=== PATIENT | female | born 1945 | race Caucasian/White ===

== ENCOUNTER 2019-10-09 07:44 | Outpatient (NON) | payer MEDICARE, SELFPAY ==
[2019-10-09 19:19] LABS: SARS-CoV-2 RNA PCR Negative
== END 2019-10-09 07:45 ==
PROVIDERS: Visit Provider Physician Assistant
DX: Z20.828 Contact with and (suspected) exposure to other viral communicable diseases (principal)
CPT/HCPCS: 87635; C9803; U0003

== ENCOUNTER 2019-10-15 11:26 | Outpatient (CLI) | payer MEDICARE, SELFPAY ==
--- NOTE | ~2019-10-15 | XR_ITS ---
EXAMINATION: XR chest 2V DATE: 10/15/2019 11:52 INDICATION: COPD, unspecified, cough TECHNIQUE: Frontal and lateral views of the chest are obtained COMPARISON: 12/14/2018 FINDINGS: The lungs are free of acute opacities. Calcified pulmonary nodules are consistent with old granulomatous disease. There is no pleural effusion or pneumothorax. The cardiomediastinal silhouette is normal. There is moderate thoracic spondylosis. A surgical clip is noted in the right breast. IMPRESSION: 1. No acute cardiopulmonary abnormality. Reviewed, dictated and finalized at location A.
== END 2019-10-15 11:27 | disposition home or self-care (01) ==
PROVIDERS: PCP Nurse Practitioner Family; Visit Provider Nurse Practitioner Family
DX: J44.9 Chronic obstructive pulmonary disease, unspecified (principal); Z87.891 Personal history of nicotine dependence
CPT/HCPCS: 71046

== ENCOUNTER 2019-11-04 03:18 | Outpatient (CLI) | payer MEDICARE, SELFPAY ==
[2019-11-04 20:03] LABS: SARS-CoV-2 RNA PCR Negative
== END 2019-11-04 03:19 | disposition home or self-care (01) ==
LOC: ANHCOVIDDT 03:19
PROVIDERS: PCP Nurse Practitioner Family; Visit Provider Internal Medicine Gastroenterology
DX: Z01.812 Encounter for preprocedural laboratory examination (principal); Z20.828 Contact with and (suspected) exposure to other viral communicable diseases
CPT/HCPCS: 87635; C9803; U0003

== ENCOUNTER 2019-11-06 01:37 | Day surgery (SDC) | payer MEDICARE, SELFPAY ==
[2019-10-27 15:09] VITALS: BMI 36.8
--- NOTE | 2019-11-06 09:44 | WPDGICN ---
Assessment and Plan Assessment and plan (1) History of colon polyps: Code(s): Z86.010 - Personal history of colonic polyps Status: Acute Assessment and Plan: patient has a history of adenomatous colon polyps removed from the colon 4 years ago. She presents today for follow-up examination. Follow-up colonoscopy every 3-5 years advised in the future. (2) Family history of colon cancer in mother: Code(s): Z80.0 - Family history of malignant neoplasm of digestive organs Status: Acute GI Consult Note Consult date/time: 11/06/19 09:44 HPI: Robina Beltran is a 74 year old female seen in evaluation at the request of Dr Sree Franco. Patient presents for surveillance colonoscopy. Her current weight appetite bowel movements are normal. She denies abdominal pain she has had no blood in her stools. She does have a history of a colon polyp with tubulovillous adenomatous features removed from the colon in 2016. Her family history is significant her mother had colon cancer. Patient states her current bowel habits are normal regular without blood. Review of Systems Review of Systems: All systems reviewed & are unremarkable except as noted in HPI and below PMFSH Past Medical History Medical History (Updated 11/06/19 @ 09:46 by Beto Hurtado MD) Body mass index (bmi) 33.0-33.9, adult (06/27/17) COPD (chronic obstructive pulmonary disease) CTS (carpal tunnel syndrome) Hyperlipidemia Hypertension Restless leg syndrome Surgical History Surgical History (Updated 12/14/18 @ 15:24 by Sonya Palacio NP) History of lumpectomy of right breast History of total bilateral knee replacement Social History Social History (Updated 02/10/19 @ 08:42 by Cierra Hercules CMA) Years smoked: 50 Smoking status: Current every day smoker Tobacco type: cigarettes Second hand tobacco smoke exposure: Yes Alcohol intake: never Substance use: never Substance use type: does not use Living arrangements: with family Gender identity (if verbalized by the patient): Female Meds Home Medications and Allergies Home Medications Medication Instructions Recorded Confirmed Type amlodipine 10 mg PO DAILY 12/14/18 10/27/19 History aspirin [Adult Low Dose Aspirin] 81 mg PO DAILY 12/14/18 10/27/19 History atorvastatin 10 mg PO DAILY 12/14/18 10/27/19 History indapamide 2.5 mg PO DAILY 12/14/18 10/27/19 History albuterol sulfate 90 mcg/actuation 2 puff INHALATION Q4-6H PRN #8.5 gm 02/10/19 10/27/19 Rx aerosol inhaler fluticasone fur. 100 mcg-umeclid 1 inhalation INHALATION DAILY 09/10/19 10/27/19 History 62.5 mcg-vilant 25 mcg inhalat.powder sertraline 25 mg tablet 25 mg PO DAILY 09/10/19 10/27/19 History trazodone 50 mg tablet 50 mg PO TID 09/10/19 10/27/19 History Allergies Allergy/AdvReac Type Severity Reaction Status Date / Time levofloxacin Allergy Unknown Rash Verified 11/06/19 09:45 Penicillins Allergy Unknown Rash Verified 11/06/19 09:45 Exam Narrative: Exam Narrative: Physical exam reveals patient to be alert. Vital signs stable. HEENT exam unremarkable. Lungs are clear to auscultation and percussion. Heart is without murmur or extra sounds. Abdominal exam bowel sounds are present soft nontender with no organomegaly. Digital external rectal exam is normal.
[2019-11-06 09:47] VITALS: BP 143/68; PULSE 80; RESP 16; TEMP 36.7; O2SAT 95; BMI 35.7
[2019-11-06] MEDS: LACTATED RINGERS 1,000 ML 150 ML IV CONT (10:02)
--- NOTE | 2019-11-06 10:21 | WPDANESEPPF ---
Anes - Initial Pre Proc Eval Procedure: Operation Date: 11/06/19 10:00 Proposed Procedures p Screening Colonoscopy - Beto Hurtado MD Date/Time: 11/06/19 10:21 Surgeon: Beto Hurtado MD Pre Op Diagnosis: Hx Colon Polyps Patient Data Age: 74 Gender: F Height: 4 ft 10 in Weight: 77.6 kg Last Vital Signs Temp 98.1 F 11/06/19 09:47 Pulse 80 11/06/19 09:47 Resp 16 11/06/19 09:47 BP 143/68 H 11/06/19 09:47 Pulse Ox 95 11/06/19 09:47 Allergies Allergy/AdvReac Type Severity Reaction Status Date / Time levofloxacin Allergy Unknown Rash Verified 11/06/19 09:45 Penicillins Allergy Unknown Rash Verified 11/06/19 09:45 Home Medications Medication Instructions Recorded Confirmed Type amlodipine 10 mg PO DAILY 12/14/18 10/27/19 History aspirin [Adult Low Dose Aspirin] 81 mg PO DAILY 12/14/18 10/27/19 History atorvastatin 10 mg PO DAILY 12/14/18 10/27/19 History indapamide 2.5 mg PO DAILY 12/14/18 10/27/19 History albuterol sulfate 90 mcg/actuation 2 puff INHALATION Q4-6H PRN #8.5 gm 02/10/19 10/27/19 Rx aerosol inhaler fluticasone fur. 100 mcg-umeclid 1 inhalation INHALATION DAILY 09/10/19 10/27/19 History 62.5 mcg-vilant 25 mcg inhalat.powder sertraline 25 mg tablet 25 mg PO DAILY 09/10/19 10/27/19 History trazodone 50 mg tablet 50 mg PO TID 09/10/19 10/27/19 History Patient hx anesthesia problems: none Family hx anesthesia problems: none PMFSH Past Medical History Medical History (Updated 11/06/19 @ 09:46 by Beto Hurtado MD) Body mass index (bmi) 33.0-33.9, adult (06/27/17) COPD (chronic obstructive pulmonary disease) CTS (carpal tunnel syndrome) Hyperlipidemia Hypertension Restless leg syndrome Surgical History Surgical History (Updated 12/14/18 @ 15:24 by Sonya Palacio NP) History of lumpectomy of right breast History of total bilateral knee replacement Social History Social History (Updated 02/10/19 @ 08:42 by Cierra Hercules CMA) Years smoked: 50 Smoking status: Current every day smoker Tobacco type: cigarettes Second hand tobacco smoke exposure: Yes Alcohol intake: never Substance use: never Substance use type: does not use Living arrangements: with family Gender identity (if verbalized by the patient): Female Anes - Eval Final PreProcedure Day of Procedure 11/06/19 10:21 Patient weight: obese Heart: regular rate and rhythm Lungs: clear to auscultation Airway: Mallampati scale class II Neurological: alert and oriented Last oral intake: >/= 8 hours ASA classification: III Emergent: no Anesthetic plan: proceed Anesthesia type and monitoring: general GIVS and standard monitoring Informed Consent: The patient's anesthetic plan and its attendant risks and benefits were discussed with the patient/family/POA. Questions were solicited and answers provided to the satisfaction of the patient/family/POA.
[2019-11-06 10:43] VITALS: BP 85/31; PULSE 72; RESP 16; O2SAT 91
[2019-11-06 10:53] VITALS: BP 91/33; PULSE 72; RESP 16; O2SAT 92
[2019-11-06 11:03] VITALS: BP 97/31; PULSE 65; RESP 16; O2SAT 93
== END 2019-11-06 11:33 | disposition home or self-care (01) ==
PROVIDERS: PCP Family Medicine; Visit Provider Internal Medicine Gastroenterology
PROC: 0DJD8ZZ Inspection of Lower Intestinal Tract, Via Natural or Artificial Opening Endoscopic (ICD-10-PCS; CPT 45378; principal; 2019-11-06 10:00)
DX: Z12.11 Encounter for screening for malignant neoplasm of colon (principal); D12.2 Benign neoplasm of ascending colon; K64.8 Other hemorrhoids; Z80.0 Family history of malignant neoplasm of digestive organs; I10 Essential (primary) hypertension; E78.5 Hyperlipidemia, unspecified; G25.81 Restless legs syndrome; J44.9 Chronic obstructive pulmonary disease, unspecified; Z79.82 Long term (current) use of aspirin; F17.210 Nicotine dependence, cigarettes, uncomplicated; E66.9 Obesity, unspecified; Z68.35 Body mass index [BMI] 35.0-35.9, adult
CPT/HCPCS: 45385; 88305; J2704; J7120

== ENCOUNTER 2020-04-08 10:30 | Outpatient (CLI) | payer MEDICARE, SELFPAY ==
--- NOTE | ~2020-04-08 | CT_ITS ---
EXAMINATION: CT lung screening EXAM DATE: 04/08/2020 10:56 INDICATION: Z87.891 - Personal history of nicotine dependence. Cough, shortness of breath. COPD and e mphysema. TECHNIQUE: Spiral low dose CT of the chest without contrast. Axial, coronal and sagittal images were reviewed. The dose-length product (DLP) for this examination was 151.35 mGy-cm. The exposure was t ailored according to patient size (auto mA exposure control), and iterative reconstruction (ASIR) was used as additional dose reduction technique. Comparison is made to prior examination from 04/13/2017. FINDINGS: Chronic biapical opacities again noted, consistent with scarring. There is 5 mm noncalcifi ed granuloma in the left upper lobe on image 47, stable. There are scattered calcified lung granuloma s. Mild to moderate emphysema and hyperinflation. Tracheobronchial tree is patent. There is no med iastinal, hilar or axillary lymphadenopathy. There are no pleural or pericardial effusions. There is no pneumothorax. Heart normal in size. There is mild to moderate coronary arterial calcificat ion, arterial sclerosis. Upper abdomen is unremarkable. There is mild to moderate thoracic spondylo sis without osteoblastic or osteolytic lesions identified. IMPRESSION: Lung-RADS category 2, benign appearance or behavior (<1% chance of malignancy); recommend continued LDCT screening in 1 year. Reviewed, dictated and finalized at location B. NISTRATIVE SERVICES COORDINATOR
== END 2020-04-08 10:31 | disposition home or self-care (01) ==
PROVIDERS: PCP Family Medicine; Visit Provider Internal Medicine Critical Care Medicine
DX: Z12.2 Encounter for screening for malignant neoplasm of respiratory organs (principal); Z87.891 Personal history of nicotine dependence
CPT/HCPCS: 71271

== ENCOUNTER → 2021-04-06 09:19 | Outpatient (CLI) | payer MEDICARE, SELFPAY ==
--- NOTE | ~2021-04-06 | CT_ITS ---
EXAMINATION: CT lung screening DATE: 04/06/2021 09:32 INDICATION: Personal history of tobacco TECHNIQUE: Computed tomography (CT) of the chest was performed without intravenous contrast. The dose -length product was 134.92 mGy-cm. Automated exposure control and iterative reconstruction technique were employed. COMPARISON: CT dated 04/08/2020 FINDINGS: Heart size normal. Mild mediastinal lymphadenopathy, likely reactive. No significant pleura l or pericardial effusion. There are calcified granulomas in the lung parenchyma. There is atheroscle rosis of the aorta and coronary arteries. The upper abdomen is unremarkable. There is emphysema. Stab le 4 mm left upper lobe nodule, image 50. No endobronchial lesions. No new pulmonary nodules or wilbert s. Mild thoracic spondylosis. No acute osseous abnormality. IMPRESSION: 1. Lung-RADS category 2: Benign appearance or behavior. Continue annual screening with noncontrast lo w-dose chest CT in 12 months. Reviewed, dictated and finalized at location B. ORATION ENGINEER IMPRESSION: 1. Lung-RADS category 2: Benign appearance or behavior. Continue annual screeni ng with noncontrast low-dose chest CT in 12 months.
== END ==
PROVIDERS: PCP Family Medicine; Visit Provider Nurse Practitioner Family
DX: Z12.2 Encounter for screening for malignant neoplasm of respiratory organs (principal); Z87.891 Personal history of nicotine dependence
CPT/HCPCS: 71271

== ENCOUNTER → 2021-04-15 03:35 | Outpatient (CLI) | payer MEDICARE, SELFPAY ==
[2021-04-15 11:19] LABS: SARS-CoV-2 RNA PCR Negative
== END ==
PROVIDERS: PCP Family Medicine; Visit Provider Family Medicine
DX: R05.9 Cough, unspecified (principal); Z20.822 Contact with and (suspected) exposure to COVID-19
CPT/HCPCS: C9803; U0003; U0005

== ENCOUNTER 2021-06-13 15:39 | Emergency (ER) | payer MEDICARE, SELFPAY ==
--- NOTE | ~2021-06-13 | XR_ITS ---
EXAMINATION: XR chest 2V DATE: 06/13/2021 16:36 INDICATION: Cough and shortness of breath. TECHNIQUE: Frontal and lateral views of the chest were obtained. COMPARISON: Chest 2 views 10/15/2019, chest CT 04/06/2021 FINDINGS: There is mild scarring at the lung apices. The lungs are hyperexpanded, consistent with emp hysema. Calcified pulmonary nodules are consistent with old granulomatous disease. There are airspace opacities in the lower lung zones, right worse than left. There are small pleural effusions. No pneu mothorax. The heart size is normal. There is a surgical clip in right breast. IMPRESSION: 1. Airspace opacities in the lower lung zones, right worse than left, consistent with atelectasis [place] pneumonia. 2. Small pleural effusions. 3. Emphysema. Reviewed, dictated and finalized at location B. IMPRESSION: 1. Airspace opacities in the lower lung zones, right worse than left, consisten t with atelectasis versus pneumonia. 2. Small pleural effusions. 3. Emphysema.
[2021-06-13 15:45] VITALS: BP 130/63; PULSE 91; RESP 18; TEMP 36.6; O2SAT 94
[2021-06-13 16:45] VITALS: PULSE 91; RESP 20; O2SAT 94
[2021-06-13] MEDS: ALBUTEROL SULFATE NEB 2.5 MG/3 ML INH INHALATION (16:47)
[2021-06-13] MEDS: predniSONE 20 MG TABLET 40 MG PO (16:47)
--- NOTE | 2021-06-13 17:08 | ED.URI ---
HPI - URI/Sore Throat General Chief Complaint: Upper Respiratory Infection Stated Complaint: Shortness of Breath,Body Aches,Chills Time Seen by Provider: 06/13/21 16:00 Source: patient Mode of arrival: ambulatory Limitations: no limitations History of Present Illness HPI Narrative: 76-year-old female with history of asthma and COPD presents to the [facility] with complaint of cough, chest congestion, body aches, chills and fatigue for 4 to 5 days. Reports that she has had a low-grade fever. Patient has a history of low O2 sats in the evening. Uses 2 L O2 only when sleeping. Patient reports short of breath with exertion. States I feel like crap . No respiratory distress at this time. Sitting comfortably on exam table. All systems reviewed and negative except as noted above. Related Data Home Medications Medication Instructions Recorded Confirmed amlodipine 10 mg PO DAILY 12/14/18 06/13/21 aspirin [Adult Low Dose Aspirin] 81 mg PO DAILY 12/14/18 06/13/21 atorvastatin 10 mg PO DAILY 12/14/18 06/13/21 indapamide 2.5 mg PO DAILY 12/14/18 06/13/21 ipratropium 0.5 mg-albuterol 3 mg 3 ml INHALATION Q6H PRN 03/18/20 06/13/21 (2.5 mg base)/3 mL nebulization soln paroxetine HCl 10 mg tablet 10 mg PO DAILY 03/18/20 06/13/21 trazodone 50 mg tablet 50 mg PO .night tablet 03/18/20 06/13/21 cyclobenzaprine 10 mg PO BID 06/13/21 06/13/21 zolpidem 5 mg PO HS 06/13/21 06/13/21 Allergies Allergy/AdvReac Type Severity Reaction Status Date / Time levofloxacin Allergy Unknown Rash Verified 06/13/21 15:51 Penicillins Allergy Unknown Rash Verified 06/13/21 15:51 Review of Systems Review of Systems: CONSTITUTIONAL: Reports fever, chills EYES: Denies visual changes, redness, or discharge. ENT: Denies rhinorrhea, congestion, sore throat, or otalgia. CARDIOVASCULAR: Denies chest pain, palpitations, or edema. RESPIRATORY: Reports cough and dyspnea with exertion. GASTROINTESTINAL: Denies abdominal pain, nausea, vomiting, or diarrhea. GENITOURINARY: Denies dysuria or hematuria. SKIN: Denies rash or itching. MUSCULOSKELETAL: Denies back pain, joint pain, or myalgia. NEUROLOGIC: Denies headache, numbness, or weakness. PSYCHIATRIC: Denies anxiety or depression. All other systems reviewed are negative, except as documented in HPI. [facility] Past Medical History Medical History Body mass index (bmi) 33.0-33.9, adult (06/27/17) COPD (chronic obstructive pulmonary disease) CTS (carpal tunnel syndrome) Hyperlipidemia Hypertension Restless leg syndrome Surgical History Surgical History History of lumpectomy of right breast History of total bilateral knee replacement Social History Social History Years smoked: 50 Tobacco type: cigarettes Second hand tobacco smoke exposure: Yes Alcohol intake: never Substance use: never Substance use type: does not use Gender identity (if verbalized by the patient): Female Comments At time of signature, agree with nursing past medical, surgical, social and family history. There is no relevant family history pertinent to the presenting complaint. Exam Narrative: GENERAL: This is a well-nourished, well-developed patient, in no apparent distress. HEAD: normocephalic, atraumatic. EYES: PERRL. Sclera clear/white. Vision is grossly intact. EARS: External ears normal, auditory canals clear and without drainage, TMs normal without perforation. Hearing grossly intact. NOSE: External nose normal with no obvious nasal discharge, nares without redness, no rhinorrhea. THROAT: Mucous membranes moist, posterior pharynx clear. NECK: Neck supple, non-tender without lymphadenopathy, masses or thyromegaly. CARDIOVASCULAR: Regular rate and rhythm without murmurs, gallops, or rubs. RESPIRATORY: Coarse, tight lung sounds throughout all lung winkler. [place]
[2021-06-13 17:15] VITALS: PULSE 93; RESP 24; O2SAT 89
== END 2021-06-13 17:28 | disposition short-term general hospital (02) ==
PROVIDERS: Emergency Provider Nurse Practitioner Family; PCP Family Medicine
DX: J18.9 Pneumonia, unspecified organism (principal); J45.901 Unspecified asthma with (acute) exacerbation; J44.9 Chronic obstructive pulmonary disease, unspecified; E78.5 Hyperlipidemia, unspecified; I10 Essential (primary) hypertension; F17.210 Nicotine dependence, cigarettes, uncomplicated; Z79.82 Long term (current) use of aspirin
CPT/HCPCS: 71046; 87426; 87804; 94640; 99213; C9803; G0463; J7512

== ENCOUNTER 2021-06-13 18:04 | Observation (INO) | payer MEDICARE, SELFPAY ==
[2021-06-13] VITALS (19 sets, daily range): BP systolic 105–134; BP diastolic 45–71; PULSE 76–97; RESP 18–26; TEMP 35.6–36.8; O2SAT 92–95
--- NOTE | 2021-06-13 18:11 | ECG_ITS ---
Measurements Intervals [place] Rate: 93 P: 64 MN: 150 QRS: 57 QRSD: 88 T: 60 QT: 334 QTc: 417 Interpretive Statements SINUS RHYTHM INCOMPLETE RIGHT BUNDLE BRANCH BLOCK BASELINE ARTIFACT- I, II, III, AVL, AVF, V6 BORDERLINE ECG Electronically Signed On 06-13-2021 20:22:34 CDT by Jose Faustin D.O.
[2021-06-13 18:34] LABS: Basophils Absolute Auto 0.1 K/mm3 (0.0-0.1); Basophils Percent Auto 0.5 % (0.2-1.2); Eosinophils Percent Auto 0.2 % (0-4.4); Hematocrit 40.3 % (37.0-47.0); Hemoglobin 13.4 g/dL (12.0-15.0); Immature Granulocyte Absolute 0.15 K/mm3 (0.00-0.031); Immature Granulocyte Percent A 1.3 % (0-0.5); Lymphocytes Absolute Auto 0.61 K/mm3 (0.9-3.2); Lymphocytes Percent Auto 5.4 % (18.3-44.2); Mean Corpuscular HGB Conc 33.3 g/dl (32-36); Mean Corpuscular Hemoglobin 29.9 pg (26-34); Mean Platelet Volume 9.5 fl (7.4-10.4); Monocytes Absolute Auto 0.7 K/mm3 (0.1-0.6); Monocytes Percent Auto 5.8 % (2.6-8.5); Neutrophils Absolute Auto 9.9 K/mm3 (1.3-6.7); Neutrophils Percent Auto 86.8 % (45.5-73.1); Platelet Count Result 246 k/mm3 (150-375); Red Blood Count 4.48 M/mm3 (4.2-5.4); Red Cell Distribution Width 12.9 % (11.5-14.5); White Blood Count 11.4 K/mm3 (4.5-10.0)
[2021-06-13 18:44] LABS: Alanine Aminotransferase 17 U/L (4-35); Albumin Level 3.9 g/dL (3.5-5.1); Alkaline Phosphatase 94 U/L (38-126); Anion Gap 7 mmol/L (8-16); Aspartate Amino Transferase 23 U/L (14-36); Bilirubin,Total 0.6 mg/dL (0.2-1.3); Blood Urea Nitrogen 17 mg/dL (7-17); Calcium 8.6 mg/dL (8.4-10.2); Carbon Dioxide 30 mmol/L (22-30); Chloride 96 mmol/L (98-107); Estimated Glomerular Filt Rate > 60; Glucose 148 mg/dL (65-110); Sodium 133 mmol/L (137-145)
[2021-06-13] MEDS: ALBUTEROL SULFATE NEB 2.5 MG/0.5 ML INH 5 MG INHALATION (19:22)
[2021-06-13] MEDS: IPRATROPIUM BR 0.02% INH SOLN 0.5 MG/2.5 ML VIAL INHALATION (19:22)
[2021-06-13] MEDS: methylPREDNISolone SOD SUCC 125 MG VIAL IV PUSH (19:24)
--- NOTE | 2021-06-13 20:04 | ED.SOB ---
HPI - SOB/Dyspnea General Chief Complaint: Shortness of Breath/Dyspnea Stated Complaint: Pneumonia, Low Oxygen from Urgent Care Time Seen by Provider: 06/13/21 18:50 History of Present Illness HPI Narrative: Patient is a 76-year-old female who presents ER with cough and shortness of breath. Patient has history of COPD. She has been having increased shortness of breath for the last 5 days. Reports cough that is productive. Unsure if her mucus is changed in consistency/color. No fevers or chills or sweats. Was seen at urgent care and told she was hypoxic and had pneumonia. Chest x-ray shows atelectasis versus pneumonia. Patient wears oxygen at night but has not been on it during the day. She is currently on 2 L satting 93%. She has had some mild improvement with nebulizer treatments. Related Data Home Medications Medication Instructions Recorded Confirmed amlodipine 10 mg PO DAILY 12/14/18 06/13/21 aspirin [Adult Low Dose Aspirin] 81 mg PO DAILY 12/14/18 06/13/21 atorvastatin 10 mg PO DAILY 12/14/18 06/13/21 indapamide 2.5 mg PO DAILY 12/14/18 06/13/21 ipratropium 0.5 mg-albuterol 3 mg 3 ml INHALATION Q6H PRN 03/18/20 06/13/21 (2.5 mg base)/3 mL nebulization soln paroxetine HCl 10 mg tablet 10 mg PO DAILY 03/18/20 06/13/21 trazodone 50 mg tablet 50 mg PO .night tablet 03/18/20 06/13/21 cyclobenzaprine 10 mg PO BID 06/13/21 06/13/21 zolpidem 5 mg PO HS 06/13/21 06/13/21 Allergies Allergy/AdvReac Type Severity Reaction Status Date / Time levofloxacin Allergy Unknown Rash Verified 06/13/21 15:51 Penicillins Allergy Unknown Rash Verified 06/13/21 15:51 Review of Systems Review of Systems: All systems reviewed & are unremarkable except as noted in HPI and below Constitutional: Constitutional: Denies chills, Reports fatigue, Denies fever(s) and Reports weakness ENT: Denies nasal congestion and Denies sore throat Cardiovascular: Cardiovascular: Denies chest pain, Denies rapid heart rate and Denies radiating jaw, neck or arm pain Respiratory: Respiratory: Reports chest congestion, Reports cough, Reports dyspnea and Denies wheezing Gastrointestinal: Gastrointestinal: Denies abdominal pain, Denies nausea and Denies vomiting Neurologic: Denies focal weakness and Denies numbness PMFSH Past Medical History Medical History Body mass index (bmi) 33.0-33.9, adult (06/27/17) COPD (chronic obstructive pulmonary disease) CTS (carpal tunnel syndrome) Hyperlipidemia Hypertension Restless leg syndrome Surgical History Surgical History History of lumpectomy of right breast History of total bilateral knee replacement Social History Social History Years smoked: 50 Tobacco type: cigarettes Second hand tobacco smoke exposure: Yes Alcohol intake: never Substance use: never Substance use type: does not use Gender identity (if verbalized by the patient): Female Exam Narrative: GENERAL: Chronically ill-appearing, well-nourished, and in no acute distress. HEAD: Normocephalic, atraumatic. EYES: PERRL and EOMI. ENT: Mucous membranes moist. CHEST: Bibasilar rales left worse than right, wheezing noted as well. No respiratory distress. HEART: Regular rate and rhythm. Normal peripheral pulses. ABDOMEN: Soft, nontender, nondistended. EXTREMITIES: Normal range of motion. No edema. SKIN: Warm, dry, no rash. NEURO: Alert and oriented x3. PSYCH: Normal mood and affect. Course Course Emergency Course: Patient informed results. Lungs free of wheezing after nebulizer treatment however still with some coarse lung sounds at the bases. Will start IV antibiotics admit for observation. Patient still requiring oxygen. Vital Signs Vital signs: Vital Signs Temperature 98.3 F 06/13/21 18:10 Pulse Rate 95 06/13/21 18:10 Respiratory Rate 18 06/13/21 1
[2021-06-13 22:42] LABS: Influenza A QL RT-PCR Negative (Negative); Influenza B QL RT-PCR Negative (Negative); SARS-CoV-2 RNA PCR Negative
--- NOTE | 2021-06-13 23:39 | ADMGEN ---
This patient, Robina Beltran, was admitted to [facility] Surg Room 322-01. Patient/family oriented to hospital policies and general routines including ID bracelet, bed and alarms, visiting hours, pain management, procedures, bathroom and other care routines, personal items, smoking policy, room service/diet, and visiting hours. Information on how to activate the Rapid Response Team has been discussed. Patient/Family are encouraged to report perceived risks to care and to ask questions if they do not understand what they are told or what they should do.
[2021-06-14] VITALS (14 sets, daily range): BP systolic 108–112; BP diastolic 50–60; PULSE 67–84; RESP 14–20; TEMP 36.1–36.6; O2SAT 92–98
--- NOTE | 2021-06-14 00:17 | PM.IMHP ---
H&P: HPI History of Present Illness Date/Time: 06/14/21 00:17 Chief Complaint: SOB Narrative: 76 yo F PMHx of COPD on 2 L nocturnal O2, RLS, HTN/HLD. Presents with SOB for one week. She reports wheezing, dry cough. She states she feels as if her chest is congested. Admits to subjective fevers, but never checked her temp. Admits to palpitations with exertion at times Denies CP, n/v/d/c, dysuria, hematuria, blood in stool. States she has not had to go up on her O2. States she has been using her inhalers and nebulizer and they have helped with her SOB. Went to urgent care today, and was advised to come to ED for evaluation. In ED labs remarkable for WBC 11.4, sodium 133 and chloride 96, potassium 3, glucose 148. Flu and COVID PCR negative. CXR showing potiential RLL infiltrate. Patient was given solumedrol, nebulizer tx, and rocephin and azithromycin in ED. Review of Systems Review of Systems: All systems reviewed & are unremarkable except as noted in HPI and below PMFSH Past Medical History Medical History (Updated 06/14/21 @ 00:26 by Bolivar Bowen DO) Body mass index (bmi) 33.0-33.9, adult (06/27/17) COPD (chronic obstructive pulmonary disease) CTS (carpal tunnel syndrome) Hyperlipidemia Hypertension Restless leg syndrome Surgical History Surgical History History of lumpectomy of right breast History of total bilateral knee replacement Family History Family History (Updated 06/13/21 @ 23:49 by Gretchen Min RN) Mother Ovarian cancer Father Esophageal cancer Sibling Esophageal cancer Cerebrovascular accident Social History Social History Second hand tobacco smoke exposure: Yes Additional smoking assessment comments: smoked for 50 yrs Alcohol intake: never Substance use: never Substance use type: does not use Gender identity (if verbalized by the patient): Female Spiritual care concerns: No Meds Home Medications and Allergies Home Medications Medication Instructions Recorded Confirmed Type amlodipine 10 mg PO DAILY 12/14/18 06/14/21 History aspirin [Adult Low Dose Aspirin] 81 mg PO DAILY 12/14/18 06/14/21 History atorvastatin 10 mg PO DAILY 12/14/18 06/14/21 History indapamide 2.5 mg PO DAILY 12/14/18 06/14/21 History ipratropium 0.5 mg-albuterol 3 mg 3 ml INHALATION Q6H PRN 03/18/20 06/14/21 History (2.5 mg base)/3 mL nebulization soln paroxetine HCl 10 mg tablet 10 mg PO DAILY 03/18/20 06/14/21 History trazodone 50 mg tablet 50 mg PO .night tablet 03/18/20 06/14/21 History albuterol sulfate 90 mcg/actuation 1 - 2 puff INHALATION Q4-6H PRN 90 04/07/21 06/14/21 Rx aerosol inhaler Days #25.5 g cyclobenzaprine 10 mg PO BID 06/13/21 06/14/21 History zolpidem 5 mg PO HS 06/13/21 06/14/21 History Allergies Allergy/AdvReac Type Severity Reaction Status Date / Time levofloxacin Allergy Unknown Rash Verified 06/14/21 00:10 Penicillins Allergy Unknown Rash Verified 06/14/21 00:10 Vital Signs Vital Signs - 24 hr 06/13/21 18:10 06/13/21 18:53 06/13/21 18:54 Temperature 98.3 F Pulse Rate 95 89 89 Respiratory Rate 18 18 21 H Blood Pressure 134/71 128/69 Pulse Oximetry 93 06/13/21 18:57 06/13/21 19:00 06/13/21 19:02 Temperature Pulse Rate 86 86 85 Respiratory Rate 23 H 18 25 H Blood Pressure 128/69 109/60 Pulse Oximetry 93 06/13/21 19:15 06/13/21 19:16 06/13/21 19:21 Temperature Pulse Rate 91 86 84 Respiratory Rate 25 H 23 H 19 Blood Pressure 116/59 L Pulse Oximetry 06/13/21 19:24 06/13/21 19:32 06/13/21 19:48 Temperature Pulse Rate 84 94 Respiratory Rate 24 H 26 H Blood Pressure Pulse Oximetry 92 06/13/21 20:00 06/13/21 20:01 06/13/21 20:15 Temperature Pulse Rate 95 95 96 Respiratory Rate 20 25 H 23 H Blood Pressure 105/45 L Pulse Oximetry 06/13/21 20:16 06/13/21 20:22 06/13/21 22:32
[2021-06-14] MEDS: ZOLPIDEM TARTRATE (*CRX) 5 MG TABLET PO ×2 (01:25→20:32)
[2021-06-14] MEDS: traZODone HCL 50 MG TABLET PO ×2 (01:25→20:32)
[2021-06-14] MEDS: POTASSIUM CHLORIDE 20 MEQ PACKET (FOR LIQUID) 60 MEQ PO (01:25)
[2021-06-14] MEDS: methylPREDNISolone SOD SUCC 125 MG VIAL 60 MG IV PUSH ×3 (01:25→11:37)
[2021-06-14] MEDS: IPRATROPIUM BR 0.02% INH SOLN 0.5 MG/2.5 ML VIAL INHALATION ×4 (02:14→21:05)
[2021-06-14] MEDS: ALBUTEROL SULFATE NEB 2.5 MG/0.5 ML INH 5 MG INHALATION ×4 (02:14→21:05)
[2021-06-14 03:13] LABS: Hemoglobin A1C 5.7 % (<5.7)
[2021-06-14] MEDS: guaiFENesin 12 HR 600 MG TABCR 1200 MG PO ×2 (08:25→20:32)
[2021-06-14] MEDS: ENOXAPARIN 40 MG/0.4 ML SYRINGE SUB-Q (08:25)
[2021-06-14] MEDS: ATORVASTATIN 10 MG TABLET PO (08:25)
[2021-06-14] MEDS: INDAPAMIDE 2.5 MG TABLET PO (08:25)
[2021-06-14] MEDS: PARoxetine 10 MG TABLET PO (08:25)
[2021-06-14] MEDS: CYCLOBENZAPRINE HCL 10 MG TABLET PO ×2 (08:25→16:17)
[2021-06-14] MEDS: ASPIRIN 81 MG ENTERIC TABLET PO (08:25)
[2021-06-14 10:46] LABS: Hematocrit 36.5 % (37.0-47.0); Mean Corpuscular HGB Conc 32.9 g/dl (32-36); Mean Corpuscular Hemoglobin 29.9 pg (26-34); Mean Platelet Volume 10.2 fl (7.4-10.4); Platelet Count Result 217 k/mm3 (150-375); Red Blood Count 4.01 M/mm3 (4.2-5.4); Red Cell Distribution Width 12.9 % (11.5-14.5)
[2021-06-14 10:57] LABS: Anion Gap 8 mmol/L (8-16); Blood Urea Nitrogen 27 mg/dL (7-17); Calcium 8.5 mg/dL (8.4-10.2); Carbon Dioxide 28 mmol/L (22-30); Chloride 97 mmol/L (98-107); Estimated Glomerular Filt Rate > 60; Glucose 386 mg/dL (65-110); Magnesium 2.2 mg/dL (1.6-2.3); Sodium 133 mmol/L (137-145)
--- NOTE | 2021-06-14 11:38 | PM.IMPN ---
Progress Note: A&P Assessment and Plan (1) COPD exacerbation: Code(s): J44.1 - Chronic obstructive pulmonary disease with (acute) exacerbation Status: Acute Assessment and Plan: Presented with wheezing and was hypoxic on presentation with O2 sats 89% Continue IV Solu-Medrol, 40 mg q12h Continue albuterol and ipratropium nebs q.6 Currently requiring 3 L per nasal cannula and maintaining adequate O2 sats. Wean oxygen as tolerated to goal 92% or above (2) Pneumonia: Code(s): J18.9 - Pneumonia, unspecified organism Status: Acute Assessment and Plan: Presented with productive cough and mild leukocytosis. CXR showed bilateral opacities, R>L. Continue Rocephin and azithromycin, started on 06/13 COVID and influenza negative Legionella and pneumococcal urinary antigens pending Supportive care: Bronchodilators, expectorants, incentive spirometry, Cornet valve (3) Hypertension: Code(s): I10 - Essential (primary) hypertension Status: Acute Assessment and Plan: Blood pressures reviewed and have been controlled, low end of normal. Last BP 109/60 Amlodipine on hold Continue indapamide Monitor blood pressure trends closely and adjust medication regimen as needed (4) Hyponatremia: Code(s): E87.1 - Hypo-osmolality and hyponatremia Status: Acute Assessment and Plan: Mild. Sodium 133 today Monitor BMP (5) Hypokalemia: Code(s): E87.6 - Hypokalemia Status: Acute Assessment and Plan: Potassium low on presentation at 3.0 Improved to 4.0 today Mag is within normal limits Continue to monitor BMP (6) Tobacco abuse: Code(s): Z72.0 - Tobacco use Status: Acute Assessment and Plan: If patient smokes 1 pack of cigarettes every 3 days Declines need for nicotine patch Reports she is trying to slowly cut back Educated patient on smoking cessation (7) Elevated fasting glucose: Code(s): R73.01 - Impaired fasting glucose Status: Acute Assessment and Plan: Secondary to steroids A1c is 5.7 Consider addition of sliding scale insulin during admission if remaining elevated. Expect some improvement now that steroids have been weaned Subjective Date/time seen: 06/14/21 11:38 Interval history: Date of service: 06/14/2021 Robina Matthieu Beltran a 76-year-old female with a history of COPD, hypertension, hyperlipidemia, and restless leg syndrome who is seen in follow-up for COPD exacerbation pneumonia. She is feeling better today. She states that she initially presented to urgent care due to cough productive of thick, yellow sputum. This has improved somewhat. She does endorse occasional wheezes. She also endorses SKINNER. Denies conversational dyspnea. No fevers, chills, nausea, vomiting, dizziness, lightheadedness. Reports regular bowel movements. Denies urinary symptoms. She is able to get up and ambulate without difficulty. Her appetite is good. She endorses smoking 1 pack of cigarettes every 3 days for the past 50 years. Review of Systems Review of Systems: All systems reviewed & are unremarkable except as noted in HPI and below Exam Narrative: General: Well-nourished, well-appearing 76 year-old female, sitting up at the bedside, comfortable, NARD Neuro: awake, alert and oriented x4, speech clear, no focal neuro deficits noted HEENMT: normocephalic, atraumatic, EOMI, sclerae anicteric, moist oral mucosa Respiratory: Scattered rhonchi bilaterally, no wheezes,, nonlabored breathing, able to speak in complete sentences Cardio: regular rate, regular rhythm with S1-S2 Abdomen: nondistended, normoactive bowel sounds, soft, nontender to palpation Extremities: no edema, erythema, or tenderness to palpation, DP pulses 2+ bilaterally Skin: no rashes or lesions, warm and dry Psych: appropriate mood and affect, judgment and insight intact Objective Data Vital Signs Vital Signs: Vi
--- NOTE | 2021-06-14 12:07 | PC.NURSE ---
sputum collected and sent to lab for analysis
[2021-06-14] MEDS: methylPREDNISolone SOD SUCC 40 MG VIAL IV PUSH (16:18)
[2021-06-14] MEDS: CALCIUM CARBONATE (TUMS) 500 MG (200 MG ELEMENTAL) 400 MG PO (20:33)
[2021-06-15] VITALS (9 sets, daily range): BP systolic 120; BP diastolic 55; PULSE 67–95; RESP 18–20; TEMP 36.6; O2SAT 90–99
[2021-06-15] MEDS: ALBUTEROL SULFATE NEB 2.5 MG/0.5 ML INH 5 MG INHALATION ×2 (02:31→08:05)
[2021-06-15] MEDS: IPRATROPIUM BR 0.02% INH SOLN 0.5 MG/2.5 ML VIAL INHALATION ×2 (02:31→08:05)
[2021-06-15 07:47] LABS: Hematocrit 35.4 % (37.0-47.0); Hemoglobin 11.9 g/dL (12.0-15.0); Mean Corpuscular HGB Conc 33.6 g/dl (32-36); Mean Corpuscular Hemoglobin 29.6 pg (26-34); Mean Corpuscular Volume 88.1 fl (80-100); Mean Platelet Volume 10.3 fl (7.4-10.4); Platelet Count Result 258 k/mm3 (150-375); Red Blood Count 4.02 M/mm3 (4.2-5.4); Red Cell Distribution Width 12.7 % (11.5-14.5); White Blood Count 13.9 K/mm3 (4.5-10.0)
[2021-06-15 07:57] LABS: Anion Gap 6 mmol/L (8-16); Blood Urea Nitrogen 31 mg/dL (7-17); Calcium 8.4 mg/dL (8.4-10.2); Carbon Dioxide 30 mmol/L (22-30); Chloride 97 mmol/L (98-107); Estimated Glomerular Filt Rate > 60; Glucose 273 mg/dL (65-110); Potassium 4.4 mmol/L (3.4-5.0); Sodium 133 mmol/L (137-145)
[2021-06-15] MEDS: guaiFENesin 12 HR 600 MG TABCR 1200 MG PO (08:55)
[2021-06-15] MEDS: PARoxetine 10 MG TABLET PO (08:55)
[2021-06-15] MEDS: ENOXAPARIN 40 MG/0.4 ML SYRINGE SUB-Q (08:56)
[2021-06-15] MEDS: CYCLOBENZAPRINE HCL 10 MG TABLET PO (08:56)
[2021-06-15] MEDS: ATORVASTATIN 10 MG TABLET PO (08:56)
[2021-06-15] MEDS: ASPIRIN 81 MG ENTERIC TABLET PO (08:56)
[2021-06-15] MEDS: methylPREDNISolone SOD SUCC 40 MG VIAL IV PUSH (08:56)
[2021-06-15] MEDS: INDAPAMIDE 2.5 MG TABLET PO (08:56)
--- NOTE | 2021-06-15 09:15 | PM.DS ---
DS: Admitting Diagnosis Discharge Date 06/15/2115 Admitting Diagnosis COPD exacerbation DS: Discharge Diagnosis Discharge Diagnosis (1) COPD exacerbation: Code(s): J44.1 - Chronic obstructive pulmonary disease with (acute) exacerbation Status: Acute Assessment and Plan: Presented with wheezing and was hypoxic on presentation with O2 sats 89% Continue IV Solu-Medrol, 40 mg q12h, changed to 40mg PO for DC Continue albuterol and ipratropium nebs q.6 Currently requiring 3 L per nasal cannula and maintaining adequate O2 sats Wean oxygen as tolerated to goal 92% or above Home O2 evaluation (2) Pneumonia: Code(s): J18.9 - Pneumonia, unspecified organism Status: Acute Assessment and Plan: Presented with productive cough and mild leukocytosis. CXR showed bilateral opacities, R>L. Continue Rocephin and azithromycin, started on 06/13 COVID and influenza negative Legionella and pneumococcal urinary antigens pending Supportive care: Bronchodilators, expectorants, incentive spirometry, Cornet valve (3) Hypertension: Code(s): I10 - Essential (primary) hypertension Status: Acute Assessment and Plan: Blood pressures reviewed and have been controlled, low end of normal. Last BP 122/55 Amlodipine restarted Continue indapamide Monitor blood pressure trends closely and adjust medication regimen as needed (4) Hyponatremia: Code(s): E87.1 - Hypo-osmolality and hyponatremia Status: Acute Assessment and Plan: Mild. Sodium 133 today Monitor BMP (5) Hypokalemia: Code(s): E87.6 - Hypokalemia Status: Acute Assessment and Plan: Potassium low on presentation at 3.0 remained 4.0 today Mag is within normal limits Continue to monitor BMP (6) Tobacco abuse: Code(s): Z72.0 - Tobacco use Status: Acute Assessment and Plan: If patient smokes 1 pack of cigarettes every 3 days Declines need for nicotine patch Reports she is trying to slowly cut back Educated patient on smoking cessation repeated DC with chantixs (7) Elevated fasting glucose: Code(s): R73.01 - Impaired fasting glucose Status: Acute Assessment and Plan: Secondary to steroids A1c is 5.7 Glucose 386 Consider addition of sliding scale insulin during admission if remaining elevated. Expect some improvement now that steroids have been weaned DS: Summary Hospital Course Hospital Course: Patient is a 76-year-old female with a past medical history of COPD on 2 L at night, hypertension, hyperlipidemia who presented to the ED with complaints of shortness of breath for 1 week. She reports increasing wheezing and dry cough and shortness of breath. Chest x-ray was performed upon admission which showed airspace opacities in the lower lung zones right worse than left and emphysema. Patient was started on IV ceftriaxone and azithromycin. Steroids were also started. Patient was given supplemental oxygen due to saturation in the high 80s. Patient stated that she feels a lot better today and is ready to go home. She stated that her cough has been very sporadic and pure far few between. She also stated that she sees Dr. Xavier and saw Dr. Xavier recently. Patient agreed to following up with Dr. Xavier is office in 3 weeks and appointment has been made for her. Patient stated that she does have breathing treatments at home. She denies any chest pain, shortness of breath, nausea, vomiting, diarrhea, constipation, weakness or fatigue. Patient did state that she has been able to walk around and is doing well with activity. I did talk to the patient about smoking cessation and she stated that she feels that she can quit because she has not been thinking about it she has been here. Patient stated that she is ready to go. Labs are stable with vital signs. Will do home O2 eval prior to discharge. Home O2 eval was co
--- NOTE | 2021-06-15 09:15 | P.DS_ITS ---
DS: Admitting Diagnosis Discharge Date 06/15/2115 Admitting Diagnosis COPD exacerbation DS: Discharge Diagnosis Discharge Diagnosis (1) COPD exacerbation: Code(s): J44.1 - Chronic obstructive pulmonary disease with (acute) exacerbation Status: Acute Assessment and Plan: * Presented with wheezing and was hypoxic on presentation with O2 sats 89% * Continue IV Solu-Medrol, 40 mg q12h, changed to 40mg PO for DC * Continue albuterol and ipratropium nebs q.6 * Currently requiring 3 L per nasal cannula and maintaining adequate O2 sats * Wean oxygen as tolerated to goal 92% or above * Home O2 evaluation (2) Pneumonia: Code(s): J18.9 - Pneumonia, unspecified organism Status: Acute Assessment and Plan: * Presented with productive cough and mild leukocytosis. * CXR showed bilateral opacities, R>L. * Continue Rocephin and azithromycin, started on 06/13 * COVID and influenza negative * Legionella and pneumococcal urinary antigens pending * Supportive care: Bronchodilators, expectorants, incentive spirometry, Cornet valve (3) Hypertension: Code(s): I10 - Essential (primary) hypertension Status: Acute Assessment and Plan: * Blood pressures reviewed and have been controlled, low end of normal. Last BP 122/55 * Amlodipine restarted * Continue indapamide * Monitor blood pressure trends closely and adjust medication regimen as needed (4) Hyponatremia: Code(s): E87.1 - Hypo-osmolality and hyponatremia Status: Acute Assessment and Plan: * Mild. * Sodium 133 today * Monitor BMP (5) Hypokalemia: Code(s): E87.6 - Hypokalemia Status: Acute Assessment and Plan: Potassium low on presentation at 3.0 * remained 4.0 today * Mag is within normal limits * Continue to monitor BMP (6) Tobacco abuse: Code(s): Z72.0 - Tobacco use Status: Acute Assessment and Plan: If patient smokes 1 pack of cigarettes every 3 days * Declines need for nicotine patch * Reports she is trying to slowly cut back * Educated patient on smoking cessation repeated * DC with chantixs (7) Elevated fasting glucose: Code(s): R73.01 - Impaired fasting glucose Status: Acute Assessment and Plan: Secondary to steroids * A1c is 5.7 * Glucose 386 * Consider addition of sliding scale insulin during admission if remaining elevated. Expect some improvement now that steroids have been weaned DS: Summary Hospital Course Hospital Course: Patient is a 76-year-old female with a past medical history of COPD on 2 L at night, hypertension, hyperlipidemia who presented to the ED with complaints of shortness of breath for 1 week. She reports increasing wheezing and dry cough and shortness of breath. Chest x-ray was performed upon admission which showed airspace opacities in the lower lung zones right worse than left and emphysema. Patient was started on IV ceftriaxone and azithromycin. Steroids were also started. Patient was given supplemental oxygen due to saturation in the high 80s. Patient stated that she feels a lot better today and is ready to go home. She stated that her cough has been very sporadic and pure far few between. She also stated that she sees Dr. Xavier and saw Dr. Xavier recently. Patient agreed to following up with Dr. Xavier is office in 3 weeks and appointment has been made for her. Patient stated that she does have breathing treatments at home. She denies any chest pain, shortness of john
[2021-06-15] MEDS: amLODIPine BESYLATE 5 MG TABLET 10 MG PO (11:51)
== END 2021-06-15 14:00 | disposition home or self-care (01) ==
LOC: ANHED 21:20 → ANH3MEDSUR 21:55
PROVIDERS: Emergency Medicine; Physician Assistant; Admitting Provider Internal Medicine; Emergency Provider Emergency Medicine; PCP Family Medicine; Visit Provider Nurse Practitioner
DX: J44.1 Chronic obstructive pulmonary disease with (acute) exacerbation (principal); J44.0 Chronic obstructive pulmonary disease with (acute) lower respiratory infection; J18.9 Pneumonia, unspecified organism; Z20.822 Contact with and (suspected) exposure to COVID-19; E87.1 Hypo-osmolality and hyponatremia; E78.5 Hyperlipidemia, unspecified; E87.6 Hypokalemia; F17.210 Nicotine dependence, cigarettes, uncomplicated; G25.81 Restless legs syndrome; I10 Essential (primary) hypertension; R73.01 Impaired fasting glucose; Z99.81 Dependence on supplemental oxygen; Z79.82 Long term (current) use of aspirin; Z88.0 Allergy status to penicillin; Z96.653 Presence of artificial knee joint, bilateral
CPT/HCPCS: 36415; 71046; 80048; 80053; 83036; 83735; 85025; 85027; 87070; 87147; 87181; 87186; 87205; 87426; 87502; 87804; 93005; 94618; 94640; 94667; 94668; 96365; 96366; 96367; 96372; 96375; 96376; 99285; A9270; C9803; G0378; J0456; J0696; J1650; J2920; J2930; J7512; U0003; U0005

== ENCOUNTER 2021-08-23 09:54 | Outpatient (CLI) | payer MEDICARE, SELFPAY ==
--- NOTE | ~2021-08-23 | US_ITS ---
EXAMINATION: US venous doppler LE RT DATE: 08/23/2021 10:30 INDICATION: Right lower limb pain. TECHNIQUE: Grayscale ultrasound images without and with compression and Doppler ultrasound images of the right lower extremity veins were obtained. COMPARISON: Ultrasound 07/22/2006 FINDINGS: The visualized portions of right common femoral vein, profunda (deep) femoral vein, femoral vein, pop liteal vein, peroneal veins, posterior tibial veins, and greater saphenous vein outflow are patent. IMPRESSION: 1. No deep venous thrombosis. Reviewed, dictated and finalized at location A.
== END 2021-08-23 09:55 | disposition home or self-care (01) ==
PROVIDERS: PCP Family Medicine; Visit Provider Podiatrist Foot & Ankle Surgery
DX: M79.661 Pain in right lower leg (principal)
CPT/HCPCS: 93971

== ENCOUNTER 2022-07-11 15:20 | Inpatient (IN) | payer MEDICARE, SELFPAY ==
[2022-07-11] VITALS (25 sets, daily range): BP systolic 110–144; BP diastolic 47–67; PULSE 90–102; RESP 16–38; TEMP 36.5–37.2; O2SAT 92–98; BMI 31.6
--- NOTE | ~2022-07-11 | XR_ITS ---
EXAMINATION: XR chest 2V DATE: 07/11/2022 16:02 INDICATION: Shortness of breath. Cough. TECHNIQUE: Frontal and lateral views of the chest were obtained. COMPARISON: Chest 2 views 06/13/2021, chest CT 04/06/2021 FINDINGS: There are lucencies in the lungs, consistent with emphysema. Calcified pulmonary nodules ar e consistent with old granulomatous disease. There are airspace opacities in right lower lung zone. N o pleural effusion or pneumothorax. The heart size is normal. There is a surgical clip in right breas t. IMPRESSION: 1. Airspace opacities in right lower lung zone, consistent with atelectasis versus pneumonia. 2. Emphysema. Reviewed, dictated and finalized at location L. IMPRESSION: 1. Airspace opacities in right lower lung zone, consistent with atelectasis [place] pneumonia. 2. Emphysema.
--- NOTE | ~2022-07-11 | CT_ITS ---
EXAMINATION:CT diagnostic chest wo con DATE: 07/12/2022 10:12 INDICATION: Lung nodules. TECHNIQUE: Computed tomography (CT) of the chest was performed without intravenous contrast. Automate d exposure control and iterative reconstruction technique were employed. The dose-length product (DLP ) was 204.44 mGy-cm. COMPARISON: Chest CT 04/06/2021 FINDINGS: There is mild scarring at the lung apices. There is mild emphysema. Calcified pulmonary nod ules and calcified hilar lymph nodes are consistent with old granulomatous disease. There are centril obular nodules and tree-in-bud opacities involving all lobes, consistent with pneumonia. No pleural e ffusion. The heart size is normal. There are coronary artery calcifications. No pericardial effusion. There is mild mediastinal lymphadenopathy, likely reactive. There is a small sliding hiatal hernia. There is a 3.9 cm cyst in right kidney. There is mild thoracic spondylosis. IMPRESSION: 1. Diffuse bilateral pneumonia. 2. Mild emphysema. 3. Mild mediastinal lymphadenopathy, likely reactive. 4. Small sliding hiatal hernia. Reviewed, dictated and finalized at location A.
--- NOTE | 2022-07-11 15:25 | ECG_ITS ---
Measurements Intervals [place] Rate: 92 P: 69 NM: 156 QRS: 56 QRSD: 86 T: 62 QT: 335 QTc: 415 Interpretive Statements SINUS RHYTHM ATRIAL PREMATURE COMPLEXES INCOMPLETE RIGHT BUNDLE BRANCH BLOCK BASELINE ARTIFACT- I, III, AVL, V6 BORDERLINE ECG COMPARED TO ECG 06/13/2021 18:17:01 NO SIGNIFICANT CHANGES Electronically Signed On 07-11-2022 16:28:02 CDT by Jose Faustin D.O.
[2022-07-11 16:32] LABS: Basophils Absolute Auto 0.1 K/mm3 (0.0-0.1); Basophils Percent Auto 0.9 % (0.2-1.2); Eosinophils Absolute Auto 0.1 K/mm3 (0-0.3); Eosinophils Percent Auto 1.6 % (0-4.4); Hematocrit 43.4 % (37.0-47.0); Hemoglobin 14.3 g/dL (12.0-15.0); Immature Granulocyte Absolute 0.01 K/mm3 (0.00-0.031); Immature Granulocyte Percent A 0.1 % (0-0.5); Lymphocytes Percent Auto 5.8 % (18.3-44.2); Mean Corpuscular HGB Conc 32.9 g/dl (32-36); Mean Platelet Volume 9.7 fl (7.4-10.4); Monocytes Absolute Auto 0.9 K/mm3 (0.1-0.6); Monocytes Percent Auto 10.5 % (2.6-8.5); Neutrophils Percent Auto 81.1 % (45.5-73.1); Platelet Count Result 208 k/mm3 (150-375); Red Blood Count 4.77 M/mm3 (4.2-5.4); Red Cell Distribution Width 13.7 % (11.5-14.5); White Blood Count 8.7 K/mm3 (4.5-10.0)
[2022-07-11 16:45] LABS: Alanine Aminotransferase 21 U/L (6-35); Albumin Level 4.3 g/dL (3.5-5.1); Alkaline Phosphatase 85 U/L (38-126); Anion Gap 6 mmol/L (8-16); Aspartate Amino Transferase 20 U/L (14-36); Bilirubin,Total 0.9 mg/dL (0.2-1.3); Blood Urea Nitrogen 19 mg/dL (7-17); Calcium 8.6 mg/dL (8.4-10.2); Carbon Dioxide 32 mmol/L (22-30); Chloride 95 mmol/L (98-107); Estimated Glomerular Filt Rate > 60; Glucose 145 mg/dL (65-110); Potassium 3.5 mmol/L (3.4-5.0); Sodium 133 mmol/L (137-145)
[2022-07-11 16:50] LABS: Prothrombin Time 13.7 Seconds (11.1-14.7)
[2022-07-11 16:51] LABS: Partial Thromboplastin Time 34.5 SECONDS (22.3-36.8)
[2022-07-11 16:57] LABS: NT Pro B Type Natriuretic Pept 998 pg/mL (19.9-100); Troponin I < 0.012 ng/mL (0.000-0.034)
[2022-07-11] MEDS: ALBUTEROL SULFATE NEB 2.5 MG/3 ML INH 5 MG INHALATION (20:31)
--- NOTE | 2022-07-11 20:34 | ED.GENADULT ---
HPI - General Adult General Chief complaint: Shortness of Breath/Dyspnea Stated complaint: NAUSEA, SOB FOR A COUPLE DAYS Time Seen by Provider: 07/11/22 19:47 History of Present Illness HPI narrative: 77-year-old female history of COPD that wears 3 to 4 L of oxygen at nighttime and does continue to smoke presents to the emergency department for evaluation of worsening shortness of breath since Sunday. Patient reports that her shortness of breath has been so significant she has not been able to smoke since Sunday. Family states patient does have a history of CHF but is not on any medications for this. Related Data Home Medications Medication Instructions Recorded Confirmed amlodipine 10 mg tablet 10 mg PO DAILY 12/14/18 04/03/22 aspirin 81 mg tablet,delayed 81 mg PO DAILY 12/14/18 04/03/22 release (Adult Low Dose Aspirin) ipratropium 0.5 mg-albuterol 3 mg 3 ml inhalation Q6H PRN Shortness 03/18/20 04/03/22 (2.5 mg base)/3 mL nebulization Of Breath soln Allergies Allergy/AdvReac Type Severity Reaction Status Date / Time levofloxacin Allergy Unknown Rash Verified 04/03/22 09:18 Penicillins Allergy Unknown Rash Verified 04/03/22 09:18 Sulfa (Sulfonamide Allergy Itching Verified 04/03/22 09:18 Antibiotics) Review of Systems Review of Systems: All systems reviewed & are unremarkable except as noted in HPI and below PMFSH Past Medical History Medical History Atherosclerosis of [place] arteries of extremities with intermittent claudication, left leg Atherosclerotic heart disease of [place] coronary artery without angina pectoris Cerebral atherosclerosis Chronic kidney disease, stage 2 (mild) COPD (chronic obstructive pulmonary disease) CTS (carpal tunnel syndrome) Depression GERD (gastroesophageal reflux disease) Hyperlipidemia Hypertension Hypertensive chronic kidney disease with stage 1 through stage 4 chronic kidney disease, or unspecified chronic kidney disease Insomnia, unspecified Major depressive disorder, recurrent, in partial remission Nicotine dependence, cigarettes, uncomplicated Nonalcoholic steatohepatitis (LOPEZ) Peripheral vascular disease, unspecified Primary generalized (osteo)arthritis Pure hypercholesterolemia, unspecified Renal mass Restless leg syndrome Tobacco abuse Surgical History Surgical History History of lumpectomy of right breast History of total bilateral knee replacement Family History Family History Mother Ovarian cancer Father Esophageal cancer Sibling Esophageal cancer Cerebrovascular accident Social History Social History Smoking packs per day: 1 Smoking cigarettes per day: 20.0 Years smoked: 55 Smoking pack-years: 55.00 Smoking status: Current every day smoker Second hand tobacco smoke exposure: Yes Additional smoking assessment comments: smoked for 50 yrs Alcohol intake: never Substance use: never Substance use type: does not use Living arrangements: with family Occupation/Education: retired Gender identity (if verbalized by the patient): Female Spiritual care concerns: No Exam Narrative: APPEARANCE: Increased work of breathing HEAD: normocephalic, atraumatic. EYES: PERRLA/EOMI, conjunctivae clear. NOSE: Normal no drainage NECK: Supple. No adenopathy, no masses. RESPIRATORY: Increased work of breathing, rhonchi in right lower lobe CARDIOVASCULAR: Sinus tachycardia without murmurs rubs or gallops ABDOMINAL: Soft, nontender, nondistended, normal bowel sounds MUSCULOSKELETAL: Moves all extremities. Strength/ROM intact, No edema, No calf tenderness. NEURO: Alert. Cranial nerves II through XII intact. SKIN: Warm, dry. Normal Color Course Course Emergency Course: 77-year-old female with COPD/emphysema
[2022-07-11] MEDS: methylPREDNISolone SOD SUCC 125 MG VIAL IV PUSH (20:49)
[2022-07-11 20:59] LABS: Alveolar/Arterial O2 Gradient 179.2 mmHg; Base Excess ABG 1.5 mEq/l (+/-2.0); Carboxyhemoglobin 1.5 % THb (0-2.0); Fractional Inspired Oxygen 50 %; HCO3 ABG 26.5 mEq/l (22.0-26.0); Methemoglobin ABG 0.3 %THb (0-1.5); Modified Allen's Test Pass; Oxygen Content ABG 20.1 %vol (16.0-22.0); Oxygen Saturation ABG 98.6 % (95.0-100.0); Oxyhemoglobin 96.5 % THb (90.0-100.0); PCO2 ABG 43.2 mmHg (35.0-45.0); PO2 ABG 128.7 mmHg (80.0-100.0); PO2 FiO2 Ratio Arterial Blood 2.57 %; Reduced Hemoglobin 1.7 %THb (0-5.0); Site Drawn RIGHT RADIAL; Total Hemoglobin 14.7 g/dL (12.0-18.0); pH ABG 7.406 (7.350-7.450)
[2022-07-11 21:00] LABS: Device OTHER DEVICE
[2022-07-11] MEDS: AZITHROMYCIN 500 MG/NS 250 ML 500 MG/250 ML BAG 250 MG IVPB (22:19)
--- NOTE | 2022-07-11 23:41 | PM.IMHP ---
H&P: HPI History of Present Illness Date/Time: 07/11/22 23:41 Chief Complaint: worsening shortness of breath. Narrative: 77-year-old female history of COPD that wears 3 to 4 L of oxygen at nighttime and does continue to smoke presents to the emergency department for evaluation of worsening shortness of breath since Sunday. The patient is a chronic active smoker who quit... last sunday. She reportedly carries a diagnosis of CHF. There is no evidence of fluid overload on exam. Patient is not on CHF medications. In the emergency department she was treated with albuterol nebulizer with improvement of her symptoms. Her vital signs show a temperature of 98.9?, pulse rate 92, respirations 16, blood pressure 131/47, pulse ox 92% on room air. Her CBC shows a WBC of 8.7, hemoglobin 14.3, hematocrit 43.4 and a platelet count of 208. Chemistry shows a serum sodium of 133, potassium 3.5 coag chloride 95, bicarb 32, BUN 19, creatinine 0.8. Her EKG shows sinus rhythm and atrial premature complexes; incomplete right bundle-branch block. Her chest x-ray reveals lucencies in the lungs, consistent with emphysema. Calcified pulmonary nodules are consistent with old granulomatous disease. There are airspace opacities in right lower lung zone. No pleural effusion or pneumothorax. The heart size is normal. There is a surgical clip in right breast. Review of Systems Review of Systems: CONSTITUTIONAL: Negative for any fevers, chills, night sweats, tiredness, fatigue, malaise, anorexia or weight loss. CARDIOVASCULAR: Negative for chest pain, palpitations, dizziness, orthopnea or lower extremity edema. RESPIRATORY: positive for shortness of breath, cough, wheezing, sputum. GENITOURINARY: Negative for frequency, nocturia, dysuria, hematuria. GYNECOLOGIC: Negative for abnormal bleeding. HEMATOLOGIC: Negative for any abnormal bleeding or bruising. MUSCULOSKELETAL: Negative for joint swelling, stiffness or pain. SKIN: Negative for rashes, eruptions, lesions or dryness. NEUROLOGIC: Negative for any focal neurologic complaints. PSYCHIATRIC: Negative for anxiety, panic, depression. [facility] Past Medical History Medical History Atherosclerosis of [place] arteries of extremities with intermittent claudication, left leg Atherosclerotic heart disease of [place] coronary artery without angina pectoris Cerebral atherosclerosis Chronic kidney disease, stage 2 (mild) COPD (chronic obstructive pulmonary disease) CTS (carpal tunnel syndrome) Depression GERD (gastroesophageal reflux disease) Hyperlipidemia Hypertension Hypertensive chronic kidney disease with stage 1 through stage 4 chronic kidney disease, or unspecified chronic kidney disease Insomnia, unspecified Major depressive disorder, recurrent, in partial remission Nicotine dependence, cigarettes, uncomplicated Nonalcoholic steatohepatitis (LOPEZ) Peripheral vascular disease, unspecified Primary generalized (osteo)arthritis Pure hypercholesterolemia, unspecified Renal mass Restless leg syndrome Tobacco abuse Surgical History Surgical History History of lumpectomy of right breast History of total bilateral knee replacement Family History Family History Mother Ovarian cancer Father Esophageal cancer Sibling Esophageal cancer Cerebrovascular accident Social History Social History Smoking packs per day: 1 Smoking cigarettes per day: 20.0 Years smoked: 55 Smoking pack-years: 55.00 Smoking status: Current every day smoker Second hand tobacco smoke exposure: Yes Additional smoking assessment comments: smoked for 50 yrs Alcohol intake: never Substance use: never Substance use type: does not use Lack of Transportation: No Lack of Food: Never True Current Housing: I Have Housing
--- NOTE | 2022-07-11 23:42 | ADMGEN ---
This patient, Robina Beltran, was admitted to [facility] Surg Room 314-02. Patient/family oriented to hospital policies and general routines including ID bracelet, bed and alarms, visiting hours, pain management, procedures, bathroom and other care routines, personal items, smoking policy, room service/diet, and visiting hours. Information on how to activate the Rapid Response Team has been discussed. Patient/Family are encouraged to report perceived risks to care and to ask questions if they do not understand what they are told or what they should do.
[2022-07-12] VITALS (20 sets, daily range): BP systolic 96–122; BP diastolic 42–73; PULSE 75–95; RESP 14–24; TEMP 36–36.4; O2SAT 86–99
[2022-07-12] MEDS: ALBUTEROL SULFATE NEB 2.5 MG/3 ML INH INHALATION ×4 (02:02→19:50)
[2022-07-12] MEDS: methylPREDNISolone SOD SUCC 125 MG VIAL 60 MG IV PUSH ×4 (06:17→22:34)
--- NOTE | 2022-07-12 08:35 | PM.IMPN ---
Progress Note: A&P Assessment and Plan (1) COPD exacerbation: Code(s): J44.1 - Chronic obstructive pulmonary disease with (acute) exacerbation Status: Acute Assessment and Plan: Chronic smoker admitted for acute COPD exacerbation and requiring supplemental O2 throughout the day; she wears chronic oxygen 3-4L at night.? Continue scheduled bronchodilators. Continue systemic steroids- solumedrol 60 mg IV Q6 hours and wean to oral prednisone when improved. Continue antibiotics for pneumonia. She would benefit from smoking cessation.? Chest x-ray confirmed emphysema.? Resume maintenance inhalers when clinically improved. (2) Pneumonia: Qualifiers: Pneumonia type: due to unspecified organism Laterality: bilateral Lung location: lower lobe of lung Qualified Code(s): J18.9 - Pneumonia, unspecified organism Code(s): J18.9 - Pneumonia, unspecified organism Status: Acute Assessment and Plan: Chext x-ray and Chest CT show bibasilar opacities suggestive of pneumonia. WBC 8.7 on admission with mildly increased neutrophil count Continue Azithromycin 500 mg IV and Rocephin 1 gram IV Q24 hours, first dose 07/11/22 Monitor temperature curve and leukocytosis. (3) Nicotine dependence, cigarettes, uncomplicated: Code(s): F17.210 - Nicotine dependence, cigarettes, uncomplicated Status: Chronic Assessment and Plan: Chronic, staff counsel on cessation. Patient refused nicotine patch. (4) Major depressive disorder, recurrent, in partial remission: Code(s): F33.41 - Major depressive disorder, recurrent, in partial remission Status: Chronic Assessment and Plan: Chronic, continue paroxetine at home dose. Not in acute exacerbation. (5) Hypertension: Qualifiers: Hypertension type: primary hypertension Qualified Code(s): I10 - Essential (primary) hypertension Code(s): I10 - Essential (primary) hypertension Status: Chronic Assessment and Plan: Chronic, blood pressures reviewed 96/42 to 122/57. Continue indapamide and amlodipine as BP allows Plan CODE STATUS: FULL CODE Discharge disposition: Patient is from home. Antibiotic: Day 2 Azithromycin & Rocephin Diet: heart healthy GI prophylaxis: PO protonix daily Estimated LOS 2 days pending improvement in respiratory symptoms. Time Spent With Patient Time with patient: 25 - 35 minutes Subjective Date/time seen: 07/12/22 08:35 Interval history: She continues to endorse shortness of breath with exertion and nonproductive cough. She continues to require supplemental oxygen during the day. No known sick contacts, chest pain, palpitations, dizziness, fever or chills. She reports compliance with maintenance inhalers and is up to date on vaccinations. Review of Systems Review of Systems: All systems reviewed & are unremarkable except as noted in HPI and below Exam Narrative: General: No acute distress.?Tired appearing older adult female lying in bed. O2 per nasal cannula. Mental Status/Psych: Awake, alert and oriented x4 with clear speech. Pleasant and cooperative. Skin: Skin fair, warm, dry without rashes or lesions. No open wounds. Good turgor.? HEENT: Normocephalic. Sclera is non-icteric. Pupils equal and round. Oral mucosa pink and moist. Neck: No JVD. Supple. Heart: S1 and S2 regular rate and rhythm. No murmurs, gallops, or rubs auscultated. Chest: Respirations even and unlabored at rest. Lung sounds fine crackles bibasilar lobes and expiratory wheezing anteriorly bilateral upper lobes. Diminished throughout. Speaking in full sentences. Abdomen: Soft, obese and non-tender to palpation.? Bowel sounds present in all 4 quadrants. No guarding. Extremities:? No edema, erythema or calf tenderness. Grossly normal ROM. Neurological: No focal deficits. Sensation intact all extremities. Cranial nerves 2-12 grossly intact. ? Objective Data
[2022-07-12] MEDS: ENOXAPARIN 40 MG/0.4 ML SYRINGE SUB-Q (09:47)
[2022-07-12] MEDS: ASPIRIN 81 MG ENTERIC TABLET PO (09:48)
[2022-07-12] MEDS: ATORVASTATIN 10 MG TABLET PO (09:48)
[2022-07-12] MEDS: amLODIPine BESYLATE 5 MG TABLET 10 MG PO (09:48)
[2022-07-12] MEDS: PARoxetine 10 MG TABLET PO (09:48)
[2022-07-12] MEDS: INDAPAMIDE 2.5 MG TABLET PO (09:48)
--- NOTE | 2022-07-12 11:08 | HOMEO2EVAL ---
Evaluation was performed at [facility] Home Oxygen Evaluation RC: Home Oxygen (O2) Evaluation Start: 07/12/22 08:47 Freq: ONCE Status: Active Protocol: RPE Activity Type Activity Date Activity User E-sign Co-sign Detail Recorded Client Recorded Date Recorded By Document 07/12/22 11:00 [email or web address] [id number] 07/12/22 11:08 LAQUITAO 07/12/22 11:00 Home O2 Evaluation [Oxygen] -Test Phase Resting -Oxygen Delivery Room Air [Pulse Oximetry] -Pulse Oximetry (90-100 %) 90 [Pulse Rate] -Pulse Rate (60-100 beats/min) 86
--- NOTE | 2022-07-12 11:28 | PCRCNOTE ---
HOME O2 EVAL COMPLETE, 3 L WITH ACTIVITY. PT HAS HOME O2 WITH [facility]. THEY WILL DROP OFF A TANK TODAY FOR DISCHARGE. PHONE NUMBER [phone]
--- NOTE | 2022-07-12 13:39 | PCRCNOTE ---
per home 02 eval: RA at rest, 3L with activity and NOC. during 1400 rounds, RT found pt on 6L NC. 02 checked and pt satting 100%. NC removed and UPD started. NC to remain off until pt has to use restroom or get up for activity.
[2022-07-12] MEDS: traZODone HCL 50 MG TABLET PO (20:43)
[2022-07-12] MEDS: AZITHROMYCIN 500 MG/NS 250 ML 500 MG/250 ML BAG 250 MG IVPB (21:18)
[2022-07-13] VITALS (14 sets, daily range): BP systolic 111–128; BP diastolic 52–68; PULSE 62–100; RESP 13–26; TEMP 36.1–36.6; O2SAT 93–100
--- NOTE | 2022-07-13 00:40 | P.PNCROSS_ITS ---
Event Note Event Note Event Note: Patient is growing Gram-positive cocci in clusters. Vancomycin was started. M onitor vancomycin trough levels.
[2022-07-13] MEDS: ALBUTEROL SULFATE NEB 2.5 MG/3 ML INH INHALATION ×4 (02:05→19:56)
[2022-07-13] MEDS: guaiFENesin/DEXTROMETHORPHAN 10 ML UDC 5 ML PO ×2 (02:54→21:01)
[2022-07-13] MEDS: methylPREDNISolone SOD SUCC 125 MG VIAL 60 MG IV PUSH ×2 (05:53→11:07)
[2022-07-13 06:42] LABS: Basophils Percent Auto 0.3 % (0.2-1.2); Hematocrit 37.3 % (37.0-47.0); Hemoglobin 12.4 g/dL (12.0-15.0); Immature Granulocyte Absolute 0.09 K/mm3 (0.00-0.031); Immature Granulocyte Percent A 0.9 % (0-0.5); Mean Corpuscular HGB Conc 33.2 g/dl (32-36); Mean Corpuscular Hemoglobin 29.7 pg (26-34); Mean Corpuscular Volume 89.2 fl (80-100); Mean Platelet Volume 10.6 fl (7.4-10.4); Monocytes Absolute Auto 0.6 K/mm3 (0.1-0.6); Monocytes Percent Auto 6.3 % (2.6-8.5); Neutrophils Absolute Auto 8.6 K/mm3 (1.3-6.7); Neutrophils Percent Auto 86.5 % (45.5-73.1); Platelet Count Result 232 k/mm3 (150-375); Red Blood Count 4.18 M/mm3 (4.2-5.4); Red Cell Distribution Width 12.9 % (11.5-14.5); White Blood Count 9.9 K/mm3 (4.5-10.0)
[2022-07-13 06:50] LABS: Alanine Aminotransferase 25 U/L (6-35); Albumin Level 3.9 g/dL (3.5-5.1); Alkaline Phosphatase 71 U/L (38-126); Anion Gap 5 mmol/L (8-16); Aspartate Amino Transferase 25 U/L (14-36); Bilirubin,Total 0.4 mg/dL (0.2-1.3); Blood Urea Nitrogen 47 mg/dL (7-17); Calcium 8.4 mg/dL (8.4-10.2); Carbon Dioxide 32 mmol/L (22-30); Chloride 96 mmol/L (98-107); Estimated Glomerular Filt Rate > 60; Glucose 219 mg/dL (65-110); Potassium 3.4 mmol/L (3.4-5.0); Sodium 133 mmol/L (137-145)
[2022-07-13] MEDS: amLODIPine BESYLATE 5 MG TABLET 10 MG PO (08:35)
[2022-07-13] MEDS: ATORVASTATIN 10 MG TABLET PO (08:36)
[2022-07-13] MEDS: PARoxetine 10 MG TABLET PO (08:36)
[2022-07-13] MEDS: ENOXAPARIN 40 MG/0.4 ML SYRINGE SUB-Q (08:36)
[2022-07-13] MEDS: INDAPAMIDE 2.5 MG TABLET PO (08:36)
[2022-07-13] MEDS: ASPIRIN 81 MG ENTERIC TABLET PO (08:36)
[2022-07-13] MEDS: PANTOPRAZOLE 40 MG TABLET PO (08:36)
--- NOTE | 2022-07-13 09:35 | PM.IMPN ---
Progress Note: A&P Assessment and Plan (1) COPD exacerbation: Code(s): J44.1 - Chronic obstructive pulmonary disease with (acute) exacerbation Status: Acute Assessment and Plan: Chronic smoker admitted for acute COPD exacerbation and requiring supplemental O2 throughout the day; she wears chronic oxygen 3-4L at night.? Continue scheduled bronchodilators. Continue systemic steroids- 07/13/22 wean solumedrol 40 mg Q8 hours. Continue antibiotics for pneumonia. She would benefit from smoking cessation.? Chest x-ray confirmed emphysema.? Resume maintenance inhalers when clinically improved. Home O2 eval shows 3L O2 needed with activity (2) Pneumonia: Qualifiers: Laterality: bilateral Lung location: lower lobe of lung Pneumonia type: due to unspecified organism Qualified Code(s): J18.9 - Pneumonia, unspecified organism Code(s): J18.9 - Pneumonia, unspecified organism Status: Acute Assessment and Plan: Chext x-ray and Chest CT show bibasilar opacities suggestive of pneumonia. WBC 8.7 on admission with mildly increased neutrophil count Continue Azithromycin 500 mg IV and Rocephin 1 gram IV Q24 hours, first dose 07/11/22 Monitor temperature curve and leukocytosis. Transition to oral antibiotics in am if blood cultures suggests contamination and respiratory status continues to improve (3) Nicotine dependence, cigarettes, uncomplicated: Code(s): F17.210 - Nicotine dependence, cigarettes, uncomplicated Status: Chronic Assessment and Plan: Chronic, psychosocial rehabilitation counselor on cessation. Patient refused nicotine patch. (4) Major depressive disorder, recurrent, in partial remission: Code(s): F33.41 - Major depressive disorder, recurrent, in partial remission Status: Chronic Assessment and Plan: Chronic, continue paroxetine at home dose. Not in acute exacerbation. (5) Hypertension: Qualifiers: Hypertension type: primary hypertension Qualified Code(s): I10 - Essential (primary) hypertension Code(s): I10 - Essential (primary) hypertension Status: Chronic Assessment and Plan: Chronic, blood pressures reviewed 102/73 to 121/59 Continue indapamide and amlodipine as BP allows (6) Hyperglycemia, drug-induced: Code(s): R73.9 - Hyperglycemia, unspecified; T50.905A - Adverse effect of unspecified drugs, medicaments and biological substances, initial encounter Status: Acute Assessment and Plan: Likely secondary to steroids. blood glucose levels 145 to 340. No prior history of diabetes. A1c 5.8% Weaning steroids currently. Accu-checks AC/HS with aspart sliding scale insulin TID meals and HS. Plan CODE STATUS: FULL CODE Discharge disposition: Patient is from home. Antibiotic: Day 3 Azithromycin & Rocephin Diet: heart healthy GI prophylaxis: PO protonix daily Estimated LOS: 1-2 days pending improvement in respiratory symptoms. Time Spent With Patient Time with patient: 25 - 35 minutes Subjective Date/time seen: 07/13/22 09:35 Interval history: She feels a little better today, but still short of breath with exertion. No chest pain, palpitations, fever, chills, or night sweats. She denies know diabetes diagnosis or prior high blood sugars. Review of Systems Review of Systems: All systems reviewed & are unremarkable except as noted in HPI and below Exam Narrative: General: No acute distress.?Sitting up in bed. O2 per nasal cannula Mental Status/Psych: Awake, alert and oriented x4 with clear speech. Pleasant and cooperative. Skin: Skin fair, warm, dry without rashes or lesions. HEENT: Normocephalic. Sclera is non-icteric. Pupils equal and round. Oral mucosa pink and moist. Neck: No JVD. Supple. Heart: S1 and S2 regular rate and rhythm. No murmurs, gallops, or rubs auscultated. Chest: Respirations even and unlabored at rest. Lung sounds fine crackles bibas
[2022-07-13 10:01] LABS: Hemoglobin A1C 5.8 % (<5.7)
[2022-07-13 11:26] LABS: Glucose Point of Care 340 mg/dl (65-105)
--- NOTE | 2022-07-13 11:49 | HOMEO2EVAL ---
Evaluation was performed at [facility] Home Oxygen Evaluation RC: Home Oxygen (O2) Evaluation Start: 07/12/22 08:47 Freq: ONCE Status: Active Protocol: RPE Activity Type Activity Date Activity User E-sign Co-sign Detail Recorded Client Recorded Date Recorded By Document 07/12/22 10:30 DJO [email or web address] 07/12/22 11:08 DJO Document 07/12/22 10:35 [email or web address] [email or web address] 07/12/22 11:08 DJO Document 07/12/22 10:40 [email or web address] [email or web address] 07/12/22 11:08 DJO Document 07/12/22 10:45 [email or web address] [email or web address] 07/12/22 11:08 DJO Document 07/12/22 11:00 [email or web address] [email or web address] 07/12/22 11:08 DJO 07/12/22 07/12/22 07/12/22 10:30 10:35 10:40 Home O2 Evaluation [Oxygen] -Test Phase Resting Exercise Exercise -Oxygen Delivery Room Air Room Air Nasal Cannula -Oxygen Flow Rate (L/min) 1 [Pulse Oximetry] -Pulse Oximetry (90-100 %) 91 86 L 87 L [Pulse Rate] -Pulse Rate (60-100 beats/min) 84 93 94 [Evaluation] -Activity Tolerance [Charges] -Treatment Charges O2 Evaluation - Inpatient 07/12/22 07/12/22 10:45 11:00 Home O2 Evaluation [Oxygen] -Test Phase Exercise Resting -Oxygen Delivery Nasal Cannula Room Air -Oxygen Flow Rate (L/min) 3 [Pulse Oximetry] -Pulse Oximetry (90-100 %) 90 90 [Pulse Rate] -Pulse Rate (60-100 beats/min) 95 86 [Evaluation] -Activity Tolerance Good [Charges] -Treatment Charges
[2022-07-13] MEDS: INSULIN ASPART (*BKC) 100 UNITS/ML SUB-Q ×3 (12:08→21:11)
--- NOTE | 2022-07-13 12:09 | PCRCNOTE ---
refaxed adelia and signed progress notes to [facility] for home o2 setup
[2022-07-13 16:21] LABS: Glucose Point of Care 244 mg/dl (65-105)
[2022-07-13] MEDS: guaiFENesin 12 HR 600 MG TABCR PO (20:36)
[2022-07-13] MEDS: methylPREDNISolone SOD SUCC 40 MG VIAL IV PUSH (20:36)
[2022-07-13] MEDS: traZODone HCL 50 MG TABLET PO (20:36)
[2022-07-13] MEDS: AZITHROMYCIN 500 MG/NS 250 ML 500 MG/250 ML BAG 250 MG IVPB (21:02)
[2022-07-13 21:11] LABS: Glucose Point of Care 386 mg/dl (65-105)
[2022-07-14] VITALS (7 sets, daily range): BP systolic 132–137; BP diastolic 58–59; PULSE 73–98; RESP 14–18; TEMP 35.9–36.3; O2SAT 91–99
[2022-07-14] MEDS: ALBUTEROL SULFATE NEB 2.5 MG/3 ML INH INHALATION ×2 (02:30→07:56)
[2022-07-14] MEDS: methylPREDNISolone SOD SUCC 40 MG VIAL IV PUSH (06:19)
[2022-07-14 06:38] LABS: Basophils Absolute Auto 0.1 K/mm3 (0.0-0.1); Basophils Percent Auto 0.6 % (0.2-1.2); Hematocrit 38.6 % (37.0-47.0); Hemoglobin 12.7 g/dL (12.0-15.0); Immature Granulocyte Absolute 0.52 K/mm3 (0.00-0.031); Immature Granulocyte Percent A 3.7 % (0-0.5); Lymphocytes Absolute Auto 1.11 K/mm3 (0.9-3.2); Lymphocytes Percent Auto 7.9 % (18.3-44.2); Mean Corpuscular HGB Conc 32.9 g/dl (32-36); Mean Corpuscular Hemoglobin 29.9 pg (26-34); Mean Corpuscular Volume 90.8 fl (80-100); Mean Platelet Volume 10.8 fl (7.4-10.4); Monocytes Absolute Auto 0.7 K/mm3 (0.1-0.6); Monocytes Percent Auto 4.8 % (2.6-8.5); Neutrophils Absolute Auto 11.7 K/mm3 (1.3-6.7); Platelet Count Result 275 k/mm3 (150-375); Red Blood Count 4.25 M/mm3 (4.2-5.4); Red Cell Distribution Width 13.2 % (11.5-14.5); White Blood Count 14.1 K/mm3 (4.5-10.0)
[2022-07-14 06:48] LABS: Anion Gap 8 mmol/L (8-16); Blood Urea Nitrogen 45 mg/dL (7-17); Calcium 8.5 mg/dL (8.4-10.2); Carbon Dioxide 32 mmol/L (22-30); Chloride 97 mmol/L (98-107); Estimated Glomerular Filt Rate 60; Glucose 209 mg/dL (65-110); Potassium 3.6 mmol/L (3.4-5.0); Sodium 137 mmol/L (137-145)
[2022-07-14 07:22] LABS: Glucose Point of Care 218 mg/dl (65-105)
[2022-07-14] MEDS: INSULIN ASPART (*BKC) 100 UNITS/ML SUB-Q ×2 (08:29→11:58)
[2022-07-14] MEDS: ASPIRIN 81 MG ENTERIC TABLET PO (08:30)
[2022-07-14] MEDS: amLODIPine BESYLATE 5 MG TABLET 10 MG PO (08:30)
[2022-07-14] MEDS: ATORVASTATIN 10 MG TABLET PO (08:30)
[2022-07-14] MEDS: PANTOPRAZOLE 40 MG TABLET PO (08:30)
[2022-07-14] MEDS: PARoxetine 10 MG TABLET PO (08:30)
[2022-07-14] MEDS: guaiFENesin 12 HR 600 MG TABCR PO (08:30)
[2022-07-14] MEDS: ENOXAPARIN 40 MG/0.4 ML SYRINGE SUB-Q (08:31)
[2022-07-14] MEDS: INDAPAMIDE 2.5 MG TABLET PO (08:31)
[2022-07-14] MEDS: CEFDINIR 300 MG CAPSULE PO (11:03)
[2022-07-14 11:24] LABS: Glucose Point of Care 268 mg/dl (65-105)
--- NOTE | 2022-07-14 12:05 | P.DS_ITS ---
DS: Admitting Diagnosis Discharge Date 07/14/2022 Admitting Diagnosis Chronic obstructive pulmonary disease with (acute) exacerbation Pneumonia, unspecified organism Nicotine dependence, cigarettes, uncomplicated Chronic kidney disease, stage 2 (mild) Nocturnal hypoxemia Essential (primary) hypertension DS: Discharge Diagnosis Discharge Diagnosis (1) COPD exacerbation: Code(s): J44.1 - Chronic obstructive pulmonary disease with (acute) exacerbation Status: Acute Assessment and Plan: Chronic smoker admitted for acute COPD exacerbation and requiring supplemental O2 throughout the day; she wears chronic oxygen 3-4L at night.? * Treated with scheduled duonebs. Continued on Trelegy at discharge * Treated with IV solumedrol. On 07/13/22 started wean solumedrol 40 mg Q8 hours. Transitioned to oral prednisone 40 mg PO daily x 5 days. * Treated with IV antibiotics for pneumonia as below and transitioned to oral antibiotics at discharge. * Recommended smoking cessation.? * Chest x-ray showed emphysema.? * Home O2 eval shows 3L O2 needed with activity (2) Pneumonia: Qualifiers: Laterality: bilateral Lung location: lower lobe of lung Pneumonia type: due to unspecified organism Qualified Code(s): J18.9 - Pneumonia, unspecified organism Code(s): J18.9 - Pneumonia, unspecified organism Status: Inactive Assessment and Plan: Chext x-ray and Chest CT show bibasilar opacities suggestive of pneumonia. * WBC 8.7 on admission with mildly increased neutrophil count * Treated with Azithromycin 500 mg IV and Rocephin 1 gram IV Q24 hours, first dose 07/11/22 - 07/13/22 * Sputum culture pending. * MRSA negative * Blood culture with gram positive cocci in one bottle of one set. 07/13/22 IV vancomycin added by air boatswain and given x1 dose. No growth in remaining 3 bot tles. Thought to be contaminant therefore vancomycin stopped. * Transitioned to oral cefdinir 300 mg PO BID 07/14/22 to complete total 7-day antibiotic course. (3) Nicotine dependence, cigarettes, uncomplicated: Code(s): F17.210 - Nicotine dependence, cigarettes, uncomplicated Status: Chronic Assessment and Plan: Chronic, skilled nursing facility counselor on cessation. Patient refused nicotine patch. (4) Major depressive disorder, recurrent, in partial remission: Code(s): F33.41 - Major depressive disorder, recurrent, in partial remission Status: Chronic Assessment and Plan: Chronic, continue paroxetine at home dose. Not in acute exacerbation. (5) Hypertension: Qualifiers: Hypertension type: primary hypertension Qualified Code(s): I10 - Essential (primary) hypertension Code(s): I10 - Essential (primary) hypertension Status: Chronic Assessment and Plan: Chronic, blood pressures reviewed 102/73 to 121/59 * Continued indapamide and amlodipine as BP allows (6) Hyperglycemia, drug-induced: Code(s): R73.9 - Hyperglycemia, unspecified; T50.905A - Adverse effect of unspecified drugs, medicaments and biological substances, initial encounter Status: Inactive Assessment and Plan: Likely secondary to steroids. * blood glucose levels 145 to 340. * No prior history of diabetes. * A1c 5.8% * Weaning steroids currently. Blood glucose levels improved with decreased steroids. * Accu-checks AC/HS with aspart sliding scale insulin TID meals and HS. * Healthy diet recommended. DS: Summary Hospital Course Reason for hospitalization: Shortness of breath
--- NOTE | 2022-07-14 12:05 | PM.DS ---
DS: Admitting Diagnosis Discharge Date 07/14/2022 Admitting Diagnosis Chronic obstructive pulmonary disease with (acute) exacerbation Pneumonia, unspecified organism Nicotine dependence, cigarettes, uncomplicated Chronic kidney disease, stage 2 (mild) Nocturnal hypoxemia Essential (primary) hypertension DS: Discharge Diagnosis Discharge Diagnosis (1) COPD exacerbation: Code(s): J44.1 - Chronic obstructive pulmonary disease with (acute) exacerbation Status: Acute Assessment and Plan: Chronic smoker admitted for acute COPD exacerbation and requiring supplemental O2 throughout the day; she wears chronic oxygen 3-4L at night.? Treated with scheduled duonebs. Continued on Trelegy at discharge Treated with IV solumedrol. On 07/13/22 started wean solumedrol 40 mg Q8 hours. Transitioned to oral prednisone 40 mg PO daily x 5 days. Treated with IV antibiotics for pneumonia as below and transitioned to oral antibiotics at discharge. Recommended smoking cessation.? Chest x-ray showed emphysema.? Home O2 eval shows 3L O2 needed with activity (2) Pneumonia: Qualifiers: Laterality: bilateral Lung location: lower lobe of lung Pneumonia type: due to unspecified organism Qualified Code(s): J18.9 - Pneumonia, unspecified organism Code(s): J18.9 - Pneumonia, unspecified organism Status: Inactive Assessment and Plan: Chext x-ray and Chest CT show bibasilar opacities suggestive of pneumonia. WBC 8.7 on admission with mildly increased neutrophil count Treated with Azithromycin 500 mg IV and Rocephin 1 gram IV Q24 hours, first dose 07/11/22 - 07/13/22 Sputum culture pending. MRSA negative Blood culture with gram positive cocci in one bottle of one set. 07/13/22 IV vancomycin added by manager pipeline and given x1 dose. No growth in remaining 3 bottles. Thought to be contaminant therefore vancomycin stopped. Transitioned to oral cefdinir 300 mg PO BID 07/14/22 to complete total 7-day antibiotic course. (3) Nicotine dependence, cigarettes, uncomplicated: Code(s): F17.210 - Nicotine dependence, cigarettes, uncomplicated Status: Chronic Assessment and Plan: Chronic, spiritual counselor on cessation. Patient refused nicotine patch. (4) Major depressive disorder, recurrent, in partial remission: Code(s): F33.41 - Major depressive disorder, recurrent, in partial remission Status: Chronic Assessment and Plan: Chronic, continue paroxetine at home dose. Not in acute exacerbation. (5) Hypertension: Qualifiers: Hypertension type: primary hypertension Qualified Code(s): I10 - Essential (primary) hypertension Code(s): I10 - Essential (primary) hypertension Status: Chronic Assessment and Plan: Chronic, blood pressures reviewed 102/73 to 121/59 Continued indapamide and amlodipine as BP allows (6) Hyperglycemia, drug-induced: Code(s): R73.9 - Hyperglycemia, unspecified; T50.905A - Adverse effect of unspecified drugs, medicaments and biological substances, initial encounter Status: Inactive Assessment and Plan: Likely secondary to steroids. blood glucose levels 145 to 340. No prior history of diabetes. A1c 5.8% Weaning steroids currently. Blood glucose levels improved with decreased steroids. Accu-checks AC/HS with aspart sliding scale insulin TID meals and HS. Healthy diet recommended. DS: Summary Hospital Course Reason for hospitalization: Shortness of breath Hospital Course: Patient is a 77-year-old female history of COPD that wears 3 to 4 L of oxygen at nighttime and a current smoker, who presented to the emergency department for evaluation of worsening shortness of breath since the Sunday prior to admission. In the emergency department she was treated with albuterol nebulizer with improvement of her symptoms. ? Her vital signs showed a temperature of 98.9?, pulse rate 92, respirati
== END 2022-07-14 13:40 | disposition home or self-care (01) | DRG 190 ==
LOC: ANHED 23:04 → ANH3MEDSUR 23:11
PROVIDERS: Admitting Provider Internal Medicine; Emergency Provider Emergency Medicine; PCP Family Medicine; Visit Provider Nurse Practitioner Family
DX: J44.1 Chronic obstructive pulmonary disease with (acute) exacerbation (principal); J18.9 Pneumonia, unspecified organism; J44.0 Chronic obstructive pulmonary disease with (acute) lower respiratory infection; I25.10 Atherosclerotic heart disease of native coronary artery without angina pectoris; I70.212 Atherosclerosis of native arteries of extremities with intermittent claudication, left leg; I67.2 Cerebral atherosclerosis; I12.9 Hypertensive chronic kidney disease with stage 1 through stage 4 chronic kidney disease, or unspecified chronic kidney disease; N18.2 Chronic kidney disease, stage 2 (mild); K75.81 Nonalcoholic steatohepatitis (NASH); K21.9 Gastro-esophageal reflux disease without esophagitis; E78.5 Hyperlipidemia, unspecified; E78.00 Pure hypercholesterolemia, unspecified; G25.81 Restless legs syndrome; G47.34 Idiopathic sleep related nonobstructive alveolar hypoventilation; R73.9 Hyperglycemia, unspecified; T38.0X5A Adverse effect of glucocorticoids and synthetic analogues, initial encounter; F17.210 Nicotine dependence, cigarettes, uncomplicated; F32.9 Major depressive disorder, single episode, unspecified; Z96.653 Presence of artificial knee joint, bilateral; Z99.81 Dependence on supplemental oxygen; Z79.82 Long term (current) use of aspirin
CPT/HCPCS: 36415; 36600; 71046; 71250; 80048; 80053; 82375; 82805; 82948; 83036; 83050; 83880; 84484; 85025; 85610; 85730; 87040; 87081; 87147; 87181; 87186; 93005; 94618; 94640; 96365; 96366; 96372; 96375; 99285; A9270; G0378; J0456; J0696; J1650; J1815; J2920; J2930; J3370

== ENCOUNTER 2023-10-24 11:38 | Emergency (ER) | payer MEDICARE, SELFPAY ==
--- NOTE | ~2023-10-24 | XR_ITS ---
EXAMINATION: XR chest 2V DATE: 10/24/2023 12:18 INDICATION: Cough and malaise TECHNIQUE: PA and lateral views of the chest were obtained. COMPARISON: Chest radiograph dated 07/11/[address] dated 07/12/2022 FINDINGS: Mild right apical pleural-parenchymal scarring. Reticulonodular opacities throughout the right mid ri ght apical to lower lung zone with patchy consolidation at the right lung base consistent with pneumo latoya. Small right pleural effusion with blunting at the right costophrenic angle. There are bilateral calcified pulmonary nodules consistent with old granulomatous disease. Left lung is otherwise clear. No pneumothorax or left-sided pleural effusion. The cardiomediastinal silhouette is normal. Mild thor acic spondylosis. Surgical clip at the right breast. IMPRESSION: 1. Opacities in the right mid to lower lung zone consistent with pneumonia with likely small right pl eural effusion. Reviewed, dictated and finalized at location B. IMPRESSION: 1. Opacities in the right mid to lower lung zone consistent with pneumonia with likely small right pleural effusion.
--- NOTE | 2023-10-24 11:48 | ED.URI ---
HPI - URI/Sore Throat General Chief Complaint: Upper Respiratory Infection Stated Complaint: body ache History of Present Illness HPI Narrative: patient is an 78-year-old female, past medical history significant for COPD, hyperlipidemia, CKD, hypertension and PVD, presents to [facility] with 6 day history of rhinorrhea, cough and body aches. She is uncertain if she has had fever. She has had no sore throat at any point during her illness. She is using her inhalers her usual without adequate relief. She denies chest pain shortness of breath. She states that she has not smoked for 5 days as they seemed to make her cough more. She denies any additional associated symptoms modifying factors. Related Data Home Medications Medication Instructions Recorded Confirmed aspirin 81 mg tablet,delayed 81 mg PO DAILY 12/14/18 10/24/23 release (Adult Low Dose Aspirin) Allergies Allergy/AdvReac Type Severity Reaction Status Date / Time levofloxacin AdvReac Mild Rash Verified 10/24/23 11:45 Penicillins AdvReac Mild Rash Verified 10/24/23 11:45 Review of Systems Respiratory: Comments: Refer to [facility] Past Medical History Medical History Atherosclerotic heart disease of [place] coronary artery without angina pectoris Chronic kidney disease, stage 2 (mild) COPD (chronic obstructive pulmonary disease) Depression GERD (gastroesophageal reflux disease) Hyperlipidemia Hypertensive chronic kidney disease with stage 1 through stage 4 chronic kidney disease, or unspecified chronic kidney disease Insomnia, unspecified Major depressive disorder, recurrent, in partial remission Migraines Nicotine dependence, cigarettes, uncomplicated Peripheral vascular disease, unspecified Surgical History Surgical History History of arthroscopy of both knees left 09/2004 right 06/2006 History of bilateral tubal ligation 1972 History of carpal tunnel release 1988 History of laparoscopy 1986 History of lumpectomy of right breast 196 History of partial hysterectomy 1984 History of stress incontinence procedure using tension free vaginal tape 2004 History of thumb surgery bone excision right and left 2001 History of total bilateral knee replacement left 07/2006 right 05/15/2012 Family History Family History Mother Ovarian cancer Father Esophageal cancer Sibling Esophageal cancer Cerebrovascular accident Social History Social History Years smoked: 55 Smoking status: Current every day smoker Tobacco type: cigarettes Second hand tobacco smoke exposure: Yes Additional smoking assessment comments: smoked for 50 yrs Alcohol intake: never Substance use: never Substance use type: does not use Do You Feel Safe in your Home?: Yes Lack of Transportation: No Lack of Food: Never True Current Housing: I Have Housing Concerned About Future Housing: No Difficulty Paying Gas/Electric Bills: No Difficulty Paying for Meds: No Currently Unemployed: No Education: High School Diploma/GED Difficulty w/ Childcare or Family Care: No Living arrangements: with family Occupation/Education: retired Gender identity (if verbalized by the patient): Female Sexual Orientation (if Verbalized by the Patient): Straight or Heterosexual Spiritual care concerns: No Exam Const: General: no acute distress and alert Nutritional Appearance: obese Orientation/consciousness: patient oriented x3 Limitations: no limitations HENMT: Head: normal to inspection Ears: external ears normal and TM's normal bilaterally Face/Nose/Sinus: Normal external nose present and Normal nares present Face and sinus: normal facial exam and sinuses nontender Mouth: Yes Normal oral and palatal mucosa prese
[2023-10-24 11:52] VITALS: BP 140/46; PULSE 86; RESP 18; TEMP 37.6; O2SAT 94
[2023-10-24 12:10] LABS: EDCOVIDSCREEN Negative (Negative); EDINFLUASCREEN Negative (Negative); EDINFLUBSCREEN Negative (Negative)
[2023-10-24] MEDS: cefTRIAXone 1 GM VIAL IM (12:37)
[2023-10-24] MEDS: LIDOCAINE HCL 1% PF INJ 5 ML VIAL 2.1 ML INFILTRATE (12:38)
== END 2023-10-24 12:54 | disposition home or self-care (01) ==
PROVIDERS: Emergency Provider Nurse Practitioner Family; PCP Family Medicine
DX: J18.9 Pneumonia, unspecified organism (principal); J44.9 Chronic obstructive pulmonary disease, unspecified; E78.5 Hyperlipidemia, unspecified; Z79.82 Long term (current) use of aspirin; N18.2 Chronic kidney disease, stage 2 (mild); I12.9 Hypertensive chronic kidney disease with stage 1 through stage 4 chronic kidney disease, or unspecified chronic kidney disease; K21.9 Gastro-esophageal reflux disease without esophagitis; I73.9 Peripheral vascular disease, unspecified; F17.210 Nicotine dependence, cigarettes, uncomplicated; Z20.822 Contact with and (suspected) exposure to COVID-19
CPT/HCPCS: 71046; 87635; 87804; 96372; 99213; G0463; J0696

== ENCOUNTER 2023-10-29 14:17 | Outpatient (CLI) | payer MEDICARE, SELFPAY ==
--- NOTE | ~2023-10-29 | CT_ITS ---
EXAMINATION:CT diagnostic chest wo con DATE: 10/29/2023 14:35 INDICATION: Abnormal findings on diagnostic imaging. TECHNIQUE: Computed tomography (CT) of the chest was performed without intravenous contrast. Automate d exposure control and iterative reconstruction technique were employed. The dose-length product (DLP ) was 196.75 mGy-cm. COMPARISON: Chest CT 07/12/2022, chest 2 views 10/24/2023 FINDINGS: There is mild emphysema. There is mild scarring at the lung apices. Calcified pulmonary nod ules are consistent with old granulomatous disease. There are tree-in-bud opacities and centrilobular nodules in right upper lobe, right middle lobe, and right lower lobe, consistent with pneumonia. The re are mild groundglass opacities in left lower lobe. There is a chronic 5 mm nodule in left upper lo be, likely benign. There is a moderate-sized right pleural effusion. The heart size is normal. There are coronary artery calcifications. No pericardial effusion. There is mild mediastinal lymphadenopath y, likely reactive. Partially visualized are cysts in the right kidney measuring up to 2.5 cm. There are bridging endplate osteophytes at multiple levels in the spine, consistent with diffuse idiopathic skeletal hyperostosis (DISH). IMPRESSION: 1. Right-sided pneumonia. 2. Moderate-sized right pleural effusion. 3. Mild emphysema. Reviewed, dictated and finalized at location A.
== END 2023-10-29 14:18 | disposition home or self-care (01) ==
LOC: ANHIMG 14:20
PROVIDERS: PCP Family Medicine; Visit Provider Family Medicine
DX: J18.9 Pneumonia, unspecified organism (principal); J90 Pleural effusion, not elsewhere classified; J43.9 Emphysema, unspecified
CPT/HCPCS: 71250

== ENCOUNTER 2023-11-12 09:23 | Outpatient (CLI) | payer MEDICARE, SELFPAY ==
--- NOTE | ~2023-11-12 | XR_ITS ---
Clinical Indication: Pneumonia PA and lateral views of the chest: Comparison: 10/24/2023 Findings: Small right pleural effusion present.. Calcified granulomas noted bilaterally. Cardiomedias tinal silhouette is within normal limits. Bones and soft tissues are unremarkable. Impression: Small right pleural effusion. Reviewed, dictated and finalized at location . Impression: Small right pleural effusion.
== END 2023-11-12 09:24 | disposition home or self-care (01) ==
PROVIDERS: PCP Family Medicine; Visit Provider Family Medicine
DX: J90 Pleural effusion, not elsewhere classified (principal); J18.9 Pneumonia, unspecified organism
CPT/HCPCS: 71046

== ENCOUNTER 2024-05-03 16:09 | Emergency (ER) | payer MEDICARE, SELFPAY ==
--- NOTE | ~2024-05-03 | XR_ITS ---
XR knee LT min 4V DATE: 05/03/2024 17:34 INDICATION: Pain TECHNIQUE: Crosstable lateral, AP and bilateral oblique views of left knee COMPARISON: None FINDINGS: Status post left total knee arthroplasty with patellar resurfacing. There is prepatellar and infrapatellar anterior soft tissue swelling. No fracture, dislocation or toni nt effusion is evident. No radiopaque foreign body or subcutaneous emphysema. No periosteal reaction or bone destruction. IMPRESSION: Anterior soft tissue swelling; no fracture, dislocation or joint effusion Status post left total knee arthroplasty with patellar resurfacing, with normal alignment Reviewed, dictated and finalized at location A. IMPRESSION: Anterior soft tissue swelling; no fracture, dislocation or joint ef fusion Status post left total knee arthroplasty with patellar resurfacing, with normal alignment
[2024-05-03 16:10] VITALS: BP 153/52; PULSE 98; RESP 16; TEMP 36.6; O2SAT 98
--- OUTSIDE RECORDS SUMMARY | 2024-05-03 16:11 | XMS_ITS | Clinical Summary ---
Author Organization [facility] Address [address] [place] [id number] Care Team Providers Care Plate Hanger Name Role Phone Unavailable Primary Care Provider Unavailabl e Social History Tobacco Use Types Packs/Day Years Used Date Smoking Tobacco: Never Assessed Comments Unknown Sex and Gender Information Value Date Recorded Sex Assigned at Not on file Legal Sex Female 4:46 PM CDT Gender Identity Not on file Sexual Orientation Not on file Plan of Treatment Health Maintenance Due Date Last Done Comments DTaP, Tdap and Td Vaccines ( 1 - Tdap) 06/04/1962 Zoster Vaccines (1 of 2) 06/04/1993 Dexa Scan (General) 06/04/2008 Pneumococcal Vaccine: 65+ Ye ars (1 of 1 - PCV) 06/04/2008 RSV Immunization or 60+ Years (1 - 1-dose 75+ series) 06/04/2018 COVID-19 Vaccine ( - 2023-2 5 season) 2023 Influenza Adult (#1) 2023 Meningococcal B Vaccine Aged Out No l onger eligible based on patient's age to complete this topic Meningococcal Vaccine Aged Out No divina bethel eligible based on patient's age to complete this topic RSV Immunizations Under 20 Months Aged Out No longer eligible based on patient's age to complete this topic
--- OUTSIDE RECORDS SUMMARY | 2024-05-03 16:11 | XMS_ITS | Continuity of Care Document ---
Author Organization [facility] Address [address] [place] [address] [address] [place] [address] Phone Care Team Providers Care Chain Forming Machine Operator Name Role Phone Blake Stewart Unavailable Unavailable Procedures Procedure Date Eye Exam & Treatment Refraction Advance Directives Directive Yes / No Effective Date File Name No Information Encounters Encounter Description Practice Location Reason(s) For Visit Diagnoses Date Provider Providers Copied on Encounter [facility], [address] [place] [address] [address], [place], [place], [id number], [place] tel:[phone] [facility] No Information 0 Terry Lozano. [address] , [address], [place], [address], [place]. tel:[phone] Referring Provider: Sree Franco MD, [address] [place], [address]. tel:[phone] Family History Family Member Type Diagnosis Age At Onset No Information Payers Payer name Insurance type Covered republican ID Authoriza tion(s) Medicare [facility] [id number] [place] [id number] Social History Type Description Quantity Date Captured Comments Sex Female Smoking Status No Information Chief Complaint And Reason For Visit No Information Reason For Referral Reason For Referral No Information History Of Present Illness Encounter Date Complaint History Of Prese nt Illness No Information Functional Status Date Functional Assessmen t No Information Instructions Date Instruction Additional Infor mation No Information Assessments Type Assessment Date No Information Patient Care Teams Name Effective Dates (start - stop) Status Members No Information
--- OUTSIDE RECORDS SUMMARY | 2024-05-03 17:14 | XMS_ITS | Continuity of Care Document ---
Author Organization [facility] Address [address] [place] [address] [address] [place] [address] Phone Care Team Providers Care Reliability Technicians Name Role Phone Blake Stewart Unavailable Unavailable Procedures Procedure Date Eye Exam & Treatment Refraction Advance Directives Directive Yes / No Effective Date File Name No Information Encounters Encounter Description Practice Location Reason(s) For Visit Diagnoses Date Provider Providers Copied on Encounter [facility], [address] [place] [address] [address], [place], [place], [id number], [place] tel:[phone] [facility] [place] No Information 0 Terry Lozano. [address] , [address], [place], [address], [place]. tel:[phone] Referring Provider: Sree Franco MD, [address] [place], [address]. tel:[phone] Family History Family Member Type Diagnosis Age At Onset No Information Payers Payer name Insurance type Covered constitution party ID Authoriza tion(s) Medicare [facility] [id number] [place] Commercial BL [id number] Social History Type Description Quantity Date Captured [...]
--- OUTSIDE RECORDS SUMMARY | 2024-05-03 17:14 | XMS_ITS | Clinical Summary ---
Author Organization [facility] Address [address] [place] [address] Care Team Providers Care Customs Examiner Name Role Phone Unavailable Primary Care Provider [...]
--- NOTE | 2024-05-03 17:17 | ED_ITS ---
HPI - Extremity Injury (Lower) General Chief Complaint: Extremity Injury, Lower Stated Complaint: fall left knee pain Time Seen by Provider: 05/03/24 17:00 History of Present Illness HPI Narrative: 78-year-old female presents emergency department for left knee pain. Patient states she tripped over something in her garage this afternoon and landed on her left knee. She did not hit her head or lose consciousness. She denies other injuries acquired. She is reporting pain and bruising to the left knee. She notes she had a knee replacement in 2007 to this knee. She is not anticoagulated but is on a daily baby aspirin. Related Data Home Medications ?Medication ?Instructions ?Recorded ?Confirmed ?Last Taken ?Type aspirin 81 mg tablet,delayed 81 mg PO DAILY 12/14/18 04/04/24 11/05/19 History release (Adult Low Dose Aspirin) Allergies Allergy/AdvReac Type Severity Reaction Status Date / Time levofloxacin AdvReac Mild Rash Verified 05/03/24 17:11 Penicillins AdvReac Mild Rash Verified 05/03/24 17:11 Review of Systems Review of Systems: All systems reviewed & are unremarkable except as noted in HPI and below PMFSH Past Medical History Medical History Restless leg syndrome Chronic venous insufficiency of lower extremity Chronic pain of lower extremity, bilateral Prediabetes Migraines Peripheral vascular disease, unspecified Hypertensive chronic kidney disease with stage 1 through stage 4 chronic kidney disease, or unspecified chronic kidney disease Chronic kidney disease, stage 2 (mild) Insomnia, unspecified Atherosclerotic heart disease of [place] coronary artery without angina pectoris Nicotine dependence, cigarettes, uncomplicated Depression GERD (gastroesophageal reflux disease) Major depressive disorder, recurrent, in partial remission COPD (chronic obstructive pulmonary disease) Hyperlipidemia Surgical History Surgical History History of stress incontinence procedure using tension free vaginal tape 2004 History of arthroscopy of both knees left 09/2004 right 06/2006 History of thumb surgery bone excision right and left 2001 History of carpal tunnel release 1988 History of bilateral tubal ligation 1972 History of partial hysterectomy 1985 History of laparoscopy 1986 History of lumpectomy of right breast 1961 History of total bilateral knee replacement left 07/2006 right 05/15/2012 Family History Family History Mother Ovarian cancer Father Esophageal cancer Sibling Esophageal cancer Cerebrovascular accident Social History Social History Years smoked: 55 Smoking status: Current every day smoker Tobacco type: cigarettes Second hand tobacco smoke exposure: Yes Additional smoking assessment comments: smoked for 50 yrs Alcohol intake: never Substance use: never Substance use type: does not use Do You Feel Safe in your Home?: Yes Lack of Transportation: No Lack of Food: Never True Current Housing: I Have Housing Concerned About Future Housing: No Difficulty Paying Gas/Electric Bills: No Difficulty Paying for Meds: No Currently Unemployed: No Education: High School Diploma/GED Difficulty w/ Childcare or Family Care: No Living arrangements: with family Occupation/Education: retired Gender identity (if verbalized by the patient): Female Sexual Orientation (if Verbalized by the Patient): Straight or Heterosexual Spiritual care concerns: No Exam Narrative: GENERAL: Well-appearing, well-nourished, and in no acute distress. HEAD: Normocephalic, atraumatic. EYES: PERRLA and EOMI. ENT: Nares clear, no rhinorrhea or epistaxis. Mucous membranes moist. NECK: No midline cervical spinous tenderness, crepitus, step-offs or deformities BACK: No midline thoracolumbar spinous tenderness, crepitus, step-offs or deformities CHEST: Clear to auscultation. No respiratory distress. HEART: Regular rate and rhythm. No murmur heard. Normal peripheral pulses. ABDOMEN: Soft, nontender, nondistended, normal active bowel sounds. EXTREMITIES: Diffuse tenderness and ecchymosis throughout the anterior aspect of the left knee with full active and passive range of motion of knee. Well- healed overlying surgical scar. No tenderness remainder of extremity. DP pulse 2 +. Sensation intact. No tenderness to BUE or RLE SKIN: Warm, dry, no rash. NEURO: No focal deficits. Alert and oriented x3 Course Vital Signs Vital signs: Vital Signs Temperature 97.9 F 05/03/24 16:10 Pulse Rate 98 05/03/24 16:10 Respiratory Rate 16 05/03/24 16:10 Blood Pressure 153/52 H 05/03/24 16:10 Pulse Oximetry 98 05/03/24 16:10 Temperature 97.9 F 05/03/24 16:10 Pulse Rate 98 05/03/24 16:10 Respiratory Rate 16 05/03/24 16:10 Blood Pressure 153/52 H 05/03/24 16:10 Pulse Oximetry 98 05/03/24 16:10 MDM - Extremity Injury (Lower) MDM Narrative Medical decision making narrative: 78-year-old female presents emergency department for left knee pain after a ground level mechanical fall that occurred this afternoon. Patient landed on her left knee. She did not hit her head or lose consciousness. She denies other injuries acquired. Vitals stable. Exam is significant for the above. Patient is neurovascularly intact. X-ray of the knee shows anterior soft tissue swelling, no fracture, dislocation or joint effusion, s/p post left total knee arthroplasty with patellar resurfacing with normal alignment. Patient was updated on results. She was given an Gigi wrap and Tylenol in the ED. Offered crutches which she politely declined. Advised her to to RICE, take Tylenol p.r.n. for pain and follow-up with her PCP. Return precautions discussed. She is agreeable with the plan verbalized understanding. Discharged in stable condition. Discharge Plan Discharge Clinical Impression: Contusion of knee, left Qualifiers: Encounter type: initial encounter Qualified Code(s): S80.02XA - Contusion of left knee, initial encounter Patient Disposition: Home, Self-Care Condition: Stable Instructions: Antibiotic Form, Knee Pain (ED) Additional Instructions: Please rest, ice, elevate and keep. He compress. Follow up with her primary care provider. Take Tylenol as needed as directed on the bottle for pain. Return to the emergency department if you develop new or worsening symptoms. Patient Language: Kinyarwanda Prescriptions: No Action aspirin [Adult Low Dose Aspirin] 81 mg Tablet,Delayed Release (Dr/Ec) 81 mg PO DAILY albuterol sulfate 90 mcg/actuation HFA aerosol inhaler See Rx Instructions .ROUTE .COMPLEX Qty: 34 4RF Dose Instruction: USE 1 TO 2 INHALATIONS BY MOUTH EVERY 4 TO 6 HOURS NEEDED FOR SHORTNESS OF BREATH OR WHEEZING Rx Instructions: USE 1 TO 2 INHALATIONS BY MOUTH EVERY 4 TO 6 HOURS NEEDED FOR SHORTNESS OF BREATH OR WHEEZING amlodipine 10 mg tablet 10 mg PO DAILY Qty: 90 0RF atorvastatin 10 mg tablet 10 mg PO DAILY Qty: 100 2RF cyclobenzaprine 10 mg tablet 10 mg PO DAILY PRN (Reason: muscle spasm) Qty: 90 2RF Trelegy Ellipta 100-62.5-25 mcg blister with device 1 inh inhalation Q24H 90 Days Qty: 3 1RF ipratropium-albuterol 0.5 mg-3 mg(2.5 mg base)/3 mL solution for nebulization See Rx Instructions .ROUTE .COMPLEX Qty: 540 7RF Dose Instruction: USE 1 VIAL VIA NEBULIZER EVERY 6 HOURS NEEDED FOR SHORTNESS OF BREATH Rx Instructions: USE 1 VIAL VIA NEBULIZER EVERY 6 HOURS NEEDED FOR SHORTNESS OF BREATH losartan 50 mg tablet See Rx Instructions .ROUTE .COMPLEX Qty: 90 3RF Dose Instruction: TAKE 1 TABLET BY MOUTH DAILY Rx Instructions: TAKE 1 TABLET BY MOUTH DAILY trazodone 50 mg tablet See Rx Instructions .ROUTE .COMPLEX Qty: 90 3RF Dose Instruction: TAKE 1 TABLET BY MOUTH DAILY AT BEDTIME NEEDED FOR INSOMNIA Rx Instructions: TAKE 1 TABLET BY MOUTH DAILY AT BEDTIME NEEDED FOR INSOMNIA fluticasone fur. 100 mcg-umeclid 62.5 mcg-vilant 25 mcg inhalat.powder 100-62.5-25 mcg blister with device 0RF paroxetine HCl 20 mg tablet 20 mg PO DAILY Qty: 60 0RF diclofenac sodium 75 mg tablet,delayed release (DR/EC) 75 mg PO BID Qty: 30 0RF lorazepam 0.5 mg tablet 0.5 mg PO BID PRN (Reason: panic attack(s)) Qty: 20 0RF tramadol 50 mg tablet 50 mg PO Q6H PRN (Reason: pain) Qty: 180 0RF Follow-up/Referrals: Sree Franco MD [Primary Care Provider] -
[2024-05-03] MEDS: ACETAMINOPHEN 500 MG TABLET 1000 MG PO (17:21)
== END 2024-05-03 18:13 | disposition home or self-care (01) ==
PROVIDERS: Emergency Provider Physician Assistant; PCP Family Medicine
DX: S80.02XA Contusion of left knee, initial encounter (principal); I87.2 Venous insufficiency (chronic) (peripheral); I73.9 Peripheral vascular disease, unspecified; I12.9 Hypertensive chronic kidney disease with stage 1 through stage 4 chronic kidney disease, or unspecified chronic kidney disease; N18.2 Chronic kidney disease, stage 2 (mild); I25.10 Atherosclerotic heart disease of native coronary artery without angina pectoris; J44.9 Chronic obstructive pulmonary disease, unspecified; E78.5 Hyperlipidemia, unspecified; R73.03 Prediabetes; K21.9 Gastro-esophageal reflux disease without esophagitis; G25.81 Restless legs syndrome; F33.41 Major depressive disorder, recurrent, in partial remission; F17.210 Nicotine dependence, cigarettes, uncomplicated; Z90.711 Acquired absence of uterus with remaining cervical stump; Z96.653 Presence of artificial knee joint, bilateral; Z79.82 Long term (current) use of aspirin; Z79.899 Other long term (current) drug therapy; W18.09XA Striking against other object with subsequent fall, initial encounter
CPT/HCPCS: 73564; 99283; A9270

== ENCOUNTER 2025-01-27 14:07 | Emergency (ER) | payer MEDICARE, SELFPAY ==
--- NOTE | ~2025-01-27 | XR_ITS ---
EXAMINATION: XR chest 2V DATE: 01/27/2025 15:12 INDICATION: Shortness of breath TECHNIQUE: Frontal and lateral views of the chest were obtained. COMPARISON: November 12, 2023 FINDINGS: Small right-sided pleural effusion stable. No gross consolidative process. Mild bibasilar infiltrative changes may be present. Mid and upper lung winkler are clear. Heart shadow normal. IMPRESSION: Small right base effusion with no lluvia pulmonary edema or gross consolidative process. Reviewed, dictated and finalized at location A. [facility] IMPRESSION: Small right base effusion with no lluvia pulmonary edema or gross co nsolidative process.
[2025-01-27 14:23] VITALS: BP 142/62; PULSE 88; RESP 16; TEMP 36.4; O2SAT 96
--- NOTE | 2025-01-27 14:26 | ECG_ITS ---
Test Date: 2025-01-27 14:42:09 Measurements Intervals [place] Rate: 85 P: 71 HI: 165 QRS: 56 QRSD: 83 T: 53 QT: 336 QTc: 400 Interpretive Statements SINUS RHYTHM BASELINE ARTIFACT- I, II, III, AVR, AVL, AVF, V1, V4-V6 NORMAL ECG No previous ECG available for comparison Electronically Signed On 01-27-2025 14:52:49 WET SUIT GLUER by Jose Faustin D.O.
--- NOTE | 2025-01-27 14:46 | ED_ITS ---
HPI - SOB/Dyspnea General Chief Complaint: Shortness of Breath/Dyspnea <Ingrid Galeano PA-C - Last Filed: 01/29/25 09:11> Stated Complaint: SOB, BLE edema <Ingrid Galeano PA-C - Last Filed: 01/29/25 09:11> Time Seen by Provider: 01/27/25 14:46 <Ingrid Galeano PA-C - Last Filed: 01/29/25 09:11> Focused HPI: This is an 79-year-old female that presents to the emergency department for shortness of breath. Ongoing over the last 3 days. Reports a chronic cough. Intermittently productive. History of COPD. She is still a smoker. Denies fevers. GENERAL: Well-appearing, well-nourished, and in no acute distress. HEAD: Normocephalic, atraumatic. CHEST: Clear to auscultation. ?No respiratory distress. HEART: Regular rate and rhythm.? NEURO: ?Alert and oriented x3. Patient screened in triage and initial orders placed.? ?Additional care and disposition to be based upon?diagnostic testing and treatment. <Ingrid Galeano PA-C - Last Filed: 01/29/25 09:11> History of Present Illness HPI Narrative: Agree with above HPI. <GRIFFIN Eric Last Filed: 01/27/25 22:12> Related Data Home Medications: Home Medications ?Medication ?Instructions ?Recorded ?Confirmed ?Last Taken ?Type aspirin 81 mg tablet,delayed 81 mg PO DAILY 12/14/18 0 10/20/24 11/05/19 History release (Adult Low Dose Aspirin) <Ingrid Galeano PA-C - Last Filed: 01/29/25 09:11> Allergies/Adverse Reactions: Allergies Allergy/AdvReac Type Severity Reaction Status Date / Time levofloxacin AdvReac Mild Rash Verified 01/27/25 14:07 Penicillins AdvReac Mild Rash Verified 01/27/25 14:07 <Ingrid Galeano PA-C - Last Filed: 01/29/25 09:11> Review of Systems 2 Review of Systems: All systems reviewed & are unremarkable except as noted in HPI and below <GRIFFIN Eric Last Filed: 01/27/25 22:12> [facility] Past Medical History Medical History: Medical History Restless leg syndrome Chronic venous insufficiency of lower extremity Chronic pain of lower extremity, bilateral Prediabetes Migraines Peripheral vascular disease, unspecified Hypertensive chronic kidney disease with stage 1 through stage 4 chronic kidney disease, or unspecified chronic kidney disease Chronic kidney disease, stage 2 (mild) Insomnia, unspecified Atherosclerotic heart disease of [place] coronary artery without angina pectoris Nicotine dependence, cigarettes, uncomplicated Depression GERD (gastroesophageal reflux disease) Major depressive disorder, recurrent, in partial remission COPD (chronic obstructive pulmonary disease) Hyperlipidemia <Ingrid Galeano PA-C - Last Filed: 01/29/25 09:11> Surgical History Surgical History: Surgical History History of stress incontinence procedure using tension free vaginal tape 2005 History of arthroscopy of both knees left 09/2004 right 06/2006 History of thumb surgery bone excision right and left 2001 History of carpal tunnel release 1988 History of bilateral tubal ligation 1972 History of partial hysterectomy 1985 History of laparoscopy 1987 History of lumpectomy of right breast 196 History of total bilateral knee replacement left 07/2006 right 05/15/2012 <Ingrid Galeano PA-C - Last Filed: 01/29/25 09:11> Family History Family History: Family History Mother Ovarian cancer Father Esophageal cancer Sibling Esophageal cancer Cerebrovascular accident <Ingrid Galeano PA-C - Last Filed: 01/29/25 09:11> Social History Social History: Social History Years smoked: 55 Smoking status: Current every day smoker Tobacco type: cigarettes Second hand tobacco smoke exposure: Yes Additional smoking assessment comments: smoked for 50 yrs Alcohol intake: never Substance use: never Substance use type: does not use Lack of Transportation: No Lack of Food: Never True Current Housing: I Have Housing Concerned About Future Housing: No Difficulty Paying Gas/Electric Bills: No Difficulty Paying for Meds: No Currently Unemployed: No Education: High School Diploma/GED Difficulty w/ Childcare or Family Care: No Living arrangements: with family Occupation/Education: retired Gender identity (if verbalized by the patient): Female Sexual Orientation (if Verbalized by the Patient): Straight or Heterosexual Spiritual care concerns: No <Ingrid Galeano PA-C - Last Filed: 01/29/25 09:11> Exam 2 Narrative: GENERAL: No acute distress. HEAD: Normocephalic, atraumatic. EYES: PERRLA and EOMI. ENT: Nares clear, no rhinorrhea or epistaxis. Mucous membranes moist. Oropharynx without tonsillar hypertrophy exudate or other lesions. Bilateral TMs pearly barlow non-bulging NECK: Supple. No adenopathy or masses. No carotid bruits or JVD CHEST: No respiratory distress. Mild wheezing. HEART: Regular rate and rhythm. No murmur heard. Normal peripheral pulses. ABDOMEN: Soft, nontender, nondistended, normal active bowel sounds. EXTREMITIES: Normal range of motion. Mild bilateral LE edema. SKIN: Warm, dry, no rash. NEURO: No focal deficits. Alert and oriented x3. PSYCH: Normal mood and affect <GRIFFIN Eric - Last Filed: 01/27/25 22:12> Course Vital Signs Vital signs: Vital Signs Temperature 97.5 F L 01/27/25 14:23 Pulse Rate 88 01/27/25 14:23 Respiratory Rate 16 01/27/25 14:23 Blood Pressure 142/62 H 01/27/25 14:23 Pulse Oximetry 96 01/27/25 14:23 Oxygen Delivery Nasal Cannula 01/27/25 14:23 Oxygen Flow Rate 3 01/27/25 14:23 Temperature 97.5 F L 01/27/25 14:23 Pulse Rate 65 01/27/25 19:09 Respiratory Rate 18 01/27/25 19:09 Blood Pressure 142/62 H 01/27/25 14:23 Pulse Oximetry 96 01/27/25 14:23 Oxygen Delivery Nasal Cannula 01/27/25 14:23 Oxygen Flow Rate 3 01/27/25 14:23 <Ingrid Galeano PA-C - Last Filed: 01/29/25 09:11> Vital Signs Temperature 97.5 F L 01/27/25 14:23 Pulse Rate 88 01/27/25 14:23 Respiratory Rate 16 01/27/25 14:23 Blood Pressure 142/62 H 01/27/25 14:23 Pulse Oximetry 96 01/27/25 14:23 Oxygen Delivery Nasal Cannula 01/27/25 14:23 Oxygen Flow Rate 3 01/27/25 14:23 Temperature 97.5 F L 01/27/25 14:23 Pulse Rate 65 01/27/25 19:09 Respiratory Rate 18 01/27/25 19:09 Blood Pressure 142/62 H 01/27/25 14:23 Pulse Oximetry 96 01/27/25 14:23 Oxygen Delivery Nasal Cannula 01/27/25 14:23 Oxygen Flow Rate 3 01/27/25 14:23 <GRIFFIN Eric - Last Filed: 01/27/25 22:12> [facility] Narrative Medical decision making narrative: This is an 79-year-old female that presents to the emergency department for shortness of breath. Ongoing over the last 3 days. Reports a chronic cough. Intermittently productive. History of COPD. She is still a smoker. Denies fevers/chills, chest pain, or headaches. She reports that she only feels an increase in shortness of breath from baseline with exertion. Patient has dyspnea likely secondary to a COPD exacerbation. Generalized wheezing on clinical exam. Low risk Well's score, PE is felt unlikely. Minimal abnormalities noted on chest x-ray including a small right base effusion with no lluvia pulmonary edema or gross consolidative process. Patient?s EKG is without high-risk changes. BNP within normal limits when age adjusted. Other labs also within normal limits. Oxygen saturations without NC were 90% or greater and with 2L she is sitting around 95%. Patient states she is on 3L NC at baseline. Administered hour long DuoNeb and Solumedrol. Mild improvement in lung sounds. Patient states she feels better and would like to go home. Plan to send home with antibiotics and a short course of prednisone. Advised close follow-up with primary especially if symptoms persist. Patient is felt to be a reasonable candidate for additional evaluation as an outpatient. Given reasons to return. <GRIFFIN Eric - Last Filed: 01/27/25 22:12> Differential Diagnosis Differential Diagnosis: Differential diagnostic considerations for shortness of breath include respiratory failure, pulmonary embolus, ACS, COPD, CHF, pneumonia, pneumothorax, asthma, metabolic disorder, anxiety. <GRIFFIN Eric - Last Filed: 01/27/25 22:12> Medical Records I have reviewed the following patient records and this information was taken into consideration when formulating the assessment and plan.: previous labs and previous ER visits <GRIFFIN Eric - Last Filed: 01/27/25 22:12> Lab Data MDM Lab Attestation statement: I personally reviewed the patient's lab results. <GRIFFIN Eric - Last Filed: 01/27/25 22:12> Result diagrams: 01/27/25 14:45 01/27/25 14:45 <Ingrid Galeano PA-C - Last Filed: 01/29/25 09:11> Labs: Lab Results 01/27/25 Range/Units 14:45 WBC 5.8 (4.5-10.0) K/mm3 RBC 4.18 L (4.2-5.4) M/mm3 Hgb 12.4 (12.0-15.0) g/dL Hct 39.0 (37.0-47.0) % MCV 93.3 (80-100) fl MCH 29.7 (26-34) pg MCHC 31.8 L (32-36) g/dl RDW 13.7 (11.5-14.5) % Plt Count 247 (150-375) k/mm3 MPV 9.5 (7.4-10.4) fl Immature Gran % (Auto) 0.3 (0-0.5) % Neut % (Auto) 74.9 H (45.5-73.1) % Lymph % (Auto) 14.5 L (18.3-44.2) % [place] % (Auto) 8.1 (2.6-8.5) % Eos % (Auto) 1.7 (0-4.4) % Baso % (Auto) 0.5 (0.2-1.2) % Lymph # (Auto) 0.84 L (0.9-3.2) K/mm3 [place] # (Auto) 0.5 (0.1-0.6) K/mm3 Eos # (Auto) 0.1 (0-0.3) K/mm3 Baso # (Auto) 0.0 (0.0-0.1) K/mm3 Abs Immat Gran (auto) 0.02 (0.00-0.031) K/mm3 Absolute Neuts (auto) 4.3 (1.3-6.7) K/mm3 Absolute Nucleated RBC 0.000 (0.0-0.012) K/mm3 Nucleated RBC % 0.0 (0.0-0.2) % PT 12.1 (11.1-14.7) Seconds INR 0.9 APTT 27.9 (22.3-36.8) Seconds Sodium 138 (137-145) mmol/L Potassium 4.1 (3.4-5.0) mmol/L Chloride 103 (98-107) mmol/L Carbon Dioxide 32 H (22-30) mmol/L Anion Gap 3 L (4-12) mmol/L BUN 16 D (7-17) mg/dL Creatinine 0.78 (0.7-1.0) mg/dL Estim Creat Clear Calc Not Reportable Estimated GFR > 60 (59 - ) Glucose 113 H (65-110) mg/dL Calcium 9.4 (8.4-10.2) mg/dL Total Bilirubin 0.5 (0.2-1.3) mg/dL AST 31 (14-36) U/L ALT 38 H (6-35) U/L Alkaline Phosphatase 99 (38-126) U/L Troponin I < 0.012 (0.000-0.034) ng/mL NT-Pro-B Natriuret Pep 525 H (19.9-100) pg/mL Total Protein 7.6 (6.3-8.2) g/dL Albumin 4.3 (3.5-5.1) g/dL <Ingrid Galeano PA-C - Last Filed: 01/29/25 09:11> Lab Results 01/27/25 Range/Units 14:45 WBC 5.8 (4.5-10.0) K/mm3 RBC 4.18 L (4.2-5.4) M/mm3 Hgb 12.4 (12.0-15.0) g/dL Hct 39.0 (37.0-47.0) % MCV 93.3 (80-100) fl MCH 29.7 (26-34) pg MCHC 31.8 L (32-36) g/dl RDW 13.7 (11.5-14.5) % Plt Count 247 (150-375) k/mm3 MPV 9.5 (7.4-10.4) fl Immature Gran % (Auto) 0.3 (0-0.5) % Neut % (Auto) 74.9 H (45.5-73.1) % Lymph % (Auto) 14.5 L (18.3-44.2) % [place] % (Auto) 8.1 (2.6-8.5) % Eos % (Auto) 1.7 (0-4.4) % Baso % (Auto) 0.5 (0.2-1.2) % Lymph # (Auto) 0.84 L (0.9-3.2) K/mm3 [place] # (Auto) 0.5 (0.1-0.6) K/mm3 Eos # (Auto) 0.1 (0-0.3) K/mm3 Baso # (Auto) 0.0 (0.0-0.1) K/mm3 Abs Immat Gran (auto) 0.02 (0.00-0.031) K/mm3 Absolute Neuts (auto) 4.3 (1.3-6.7) K/mm3 Absolute Nucleated RBC 0.000 (0.0-0.012) K/mm3 Nucleated RBC % 0.0 (0.0-0.2) % PT 12.1 (11.1-14.7) Seconds INR 0.9 APTT 27.9 (22.3-36.8) Seconds Sodium 138 (137-145) mmol/L Potassium 4.1 (3.4-5.0) mmol/L Chloride 103 (98-107) mmol/L Carbon Dioxide 32 H (22-30) mmol/L Anion Gap 3 L (4-12) mmol/L BUN 16 D (7-17) mg/dL Creatinine 0.78 (0.7-1.0) mg/dL Estim Creat Clear Calc Not Reportable Estimated GFR > 60 (59 - ) Glucose 113 H (65-110) mg/dL Calcium 9.4 (8.4-10.2) mg/dL Total Bilirubin 0.5 (0.2-1.3) mg/dL AST 31 (14-36) U/L ALT 38 H (6-35) U/L Alkaline Phosphatase 99 (38-126) U/L Troponin I < 0.012 (0.000-0.034) ng/mL NT-Pro-B Natriuret Pep 525 H (19.9-100) pg/mL Total Protein 7.6 (6.3-8.2) g/dL Albumin 4.3 (3.5-5.1) g/dL <GRIFFIN Eric - Last Filed: 01/27/25 22:12> Imaging Data Attestation: I personally reviewed and interpreted this imaging study as follows: < GRIFFIN Eric Last Filed: 01/27/25 22:12> Radiologist's impression: ITS Impressions Chest X-Ray 01/27/25 15:14 IMPRESSION: Small right base effusion with no lluvia pulmonary edema or gross consolidative process. <Ingrid Galeano PA-C - Last Filed: 01/29/25 09:11> ITS Impressions Chest X-Ray 01/27/25 15:14 IMPRESSION: Small right base effusion with no lluvia pulmonary edema or gross consolidative process. <GRIFFIN Eric Last Filed: 01/27/25 22:12> ECG Data EKG #1: ECG completion date: 01/27/25 <GRIFFIN Eric Last Filed: 01/27/25 22:12> ECG completion time: 14:42 <GRIFFIN Eric Last Filed: 01/27/25 22:12> normal rate, sinus rhythm and no acute changes <GRIFFIN Eric Last Filed: 01/27/25 22:12> Critical Care Time Critical Care Time Critical Care Time: No <Ingrid Galeano PA-C - Last Filed: 01/29/25 09:11> Discharge Plan Discharge Clinical Impression: Acute exacerbation of chronic obstructive pulmonary disease Dyspnea Qualifiers: Dyspnea type: unspecified Qualified Code(s): R06.00 - Dyspnea, unspecified <Ingrid Galeano PA-C - Last Filed: 01/29/25 09:11> Patient Disposition: Home <ROSEANNE Melissa Last Filed: 01/29/25 09:11> Condition: Stable <ROSEANNE Melissa Last Filed: 01/29/25 09:11> Instructions: Antibiotic Form, Dyspnea (ED), Chronic Lung Disease and Infection Prevention (ED) <ROSEANNE Melissa Last Filed: 01/29/25 09:11> Additional Instructions: Return to the emergency department if you experience fever, chest pain, shortness of breath, abdominal pain with nausea and vomiting, weakness, numbness/tingling, or any other symptoms that are concerning to you. Take medications as prescribed. Follow up with primary care doctor. <ROSEANNE Melissa Last Filed: 01/29/25 09:11> Patient Language: Austrian <ROSEANNE Melissa Last Filed: 01/29/25 09:11> Prescriptions: New prednisone 50 mg tablet 50 mg PO DAILY Qty: 5 0RF doxycycline hyclate 100 mg capsule 100 mg PO BID Qty: 10 0RF No Action aspirin [Adult Low Dose Aspirin] 81 mg Tablet,Delayed Release (Dr/Ec) 81 mg PO DAILY Trelegy Ellipta 100-62.5-25 mcg blister with device 1 inh inhalation Q24H 90 Days Qty: 3 1RF fluticasone fur. 100 mcg-umeclid 62.5 mcg-vilant 25 mcg inhalat.powder 100-62.5-25 mcg blister with device 0RF amlodipine 10 mg tablet See Rx Instructions .ROUTE .COMPLEX Qty: 90 3RF Dose Instruction: TAKE 1 TABLET BY MOUTH DAILY Rx Instructions: TAKE 1 TABLET BY MOUTH DAILY (DME) blood-glucose meter Kit See Rx Instructions .Route Qty: 1 0RF Rx Instructions: As directed paroxetine HCl 20 mg tablet 20 mg PO DAILY Qty: 100 1RF ipratropium-albuterol 0.5 mg-3 mg(2.5 mg base)/3 mL solution for nebulization See Rx Instructions .ROUTE .COMPLEX Qty: 540 7RF Dose Instruction: USE 1 VIAL VIA NEBULIZER EVERY 6 HOURS NEEDED FOR SHORTNESS OF BREATH Rx Instructions: USE 1 VIAL VIA NEBULIZER EVERY 6 HOURS NEEDED FOR SHORTNESS OF BREATH atorvastatin 10 mg tablet 10 mg PO DAILY Qty: 100 2RF albuterol sulfate 90 mcg/actuation HFA aerosol inhaler See Rx Instructions .ROUTE .COMPLEX Qty: 34 4RF Dose Instruction: USE 1 TO 2 INHALATIONS BY MOUTH EVERY 4 TO 6 HOURS NEEDED FOR SHORTNESS OF BREATH OR WHEEZING Rx Instructions: USE 1 TO 2 INHALATIONS BY MOUTH EVERY 4 TO 6 HOURS NEEDED FOR SHORTNESS OF BREATH OR WHEEZING losartan 50 mg tablet See Rx Instructions .ROUTE .COMPLEX Qty: 90 3RF Dose Instruction: TAKE 1 TABLET BY MOUTH DAILY Rx Instructions: TAKE 1 TABLET BY MOUTH DAILY meloxicam 7.5 mg tablet 7.5 mg PO BIDWMEAL Qty: 60 1RF tramadol 50 mg tablet 50 mg PO Q6H PRN (Reason: pain) Qty: 120 0RF lorazepam 0.5 mg tablet 0.5 mg PO BID PRN (Reason: panic attack(s)) Qty: 20 0RF cyclobenzaprine 10 mg tablet 10 mg PO DAILY PRN (Reason: muscle spasm) Qty: 90 2RF trazodone 50 mg tablet See Rx Instructions .ROUTE .COMPLEX Qty: 90 3RF Dose Instruction: TAKE 1 TABLET BY MOUTH DAILY AT BEDTIME NEEDED FOR INSOMNIA Rx Instructions: TAKE 1 TABLET BY MOUTH DAILY AT BEDTIME NEEDED FOR INSOMNIA <Ingrid Galeano PA-C - Last Filed: 01/29/25 09:11> Follow-up/Referrals: Sree Franco MD [Primary Care Provider, Family Practice] <Ingrid Galeano PA-C - Last Filed: 01/29/25 09:11>
[2025-01-27 14:55] LABS: Hematocrit 39.0 % (37.0-47.0); Hemoglobin 12.4 g/dL (12.0-15.0); Immature Granulocyte Percent A 0.3 % (0-0.5); Lymphocytes Absolute Auto 0.84 K/mm3 (0.9-3.2); Mean Corpuscular HGB Conc 31.8 g/dl (32-36); Mean Corpuscular Hemoglobin 29.7 pg (26-34); Mean Corpuscular Volume 93.3 fl (80-100); Nucleated Red Blood Cells Absolute Auto 0.000 K/mm3 (0.0-0.012); Nucleated Red Blood Cells Perc 0.0 % (0.0-0.2); Platelet Count Result 247 k/mm3 (150-375); Red Blood Count 4.18 M/mm3 (4.2-5.4); White Blood Count 5.8 K/mm3 (4.5-10.0)
[2025-01-27 15:05] LABS: INR 0.9; Prothrombin Time 12.1 Seconds (11.1-14.7)
[2025-01-27 15:06] LABS: Alanine Aminotransferase 38 U/L (6-35); Albumin Level 4.3 g/dL (3.5-5.1); Alkaline Phosphatase 99 U/L (38-126); Anion Gap 3 mmol/L (4-12); Aspartate Amino Transferase 31 U/L (14-36); Bilirubin,Total 0.5 mg/dL (0.2-1.3); Blood Urea Nitrogen 16 mg/dL (7-17); Calcium 9.4 mg/dL (8.4-10.2); Carbon Dioxide 32 mmol/L (22-30); Chloride 103 mmol/L (98-107); Estimated Glomerular Filt Rate > 60; Glucose 113 mg/dL (65-110); Partial Thromboplastin Time 27.9 Seconds (22.3-36.8); Potassium 4.1 mmol/L (3.4-5.0); Sodium 138 mmol/L (137-145); Total Protein 7.6 g/dL (6.3-8.2)
[2025-01-27 15:17] LABS: NT Pro B Type Natriuretic Pept 525 pg/mL (19.9-100); Troponin I < 0.012 ng/mL (0.000-0.034)
--- OUTSIDE RECORDS SUMMARY | 2025-01-27 16:31 | XMS_ITS | Clinical Summary ---
Author Organization [facility] Address [address] [place] [id number] Care Team Providers Care Nurse Wound Name Role Phone Unavailable Primary Care Provider [...] Td Vaccines ( 1 - Tdap) 06/04/1962 Pneumococcal Vaccine: 50+ Ye ars (1 of 1 - PCV) 06/04/1993 Zoster Vaccines (1 of 2) 06/04/1993 Dexa Scan (General) 06/04/2008 RSV Immunization or 60+ Years (1 - 1-dose 75+ series) 06/04/2018 COVID-19 Vaccine ( - 2024-2 6 season) 2024 Influenza Adult (#1) 2024 Hepatitis A Vaccines Aged Out No long er eligible based on patient's age to complete this topic Meningococcal B Vaccine Aged Out No l onger eligible based on patient's age to complete this topic Meningococcal Vaccine Aged Out No divina bethel eligible based on patient's age to complete this topic RSV Immunizations Under 20 Months Aged Out No longer eligible based on patient's age to complete this topic
--- OUTSIDE RECORDS SUMMARY | 2025-01-27 18:24 | XMS_ITS | Clinical Summary ---
Author Organization [facility] Address [address] [place] [id number] Care Team Providers Care Doll Wig Hackler Name Role Phone Unavailable Primary Care Provider [...]
--- NOTE | 2025-01-27 18:45 | PC.NURSE ---
Called ED Respiratory and notified of pt breathing treatment.
[2025-01-27] MEDS: ALBUTEROL SULFATE NEB 2.5 MG/3 ML INH 15 MG INHALATION (19:02)
[2025-01-27] MEDS: IPRATROPIUM BR 0.02% INH SOLN 0.5 MG/2.5 ML VIAL 1.5 MG INHALATION (19:03)
[2025-01-27 19:09] VITALS: PULSE 65; RESP 18
[2025-01-27] MEDS: DOXYCYCLINE HYCLATE 100 MG TABLET PO (20:21)
== END 2025-01-27 20:27 | disposition home or self-care (01) ==
PROVIDERS: Emergency Medicine; PCP Family Medicine
DX: J44.1 Chronic obstructive pulmonary disease with (acute) exacerbation (principal); I87.2 Venous insufficiency (chronic) (peripheral); I73.9 Peripheral vascular disease, unspecified; I12.9 Hypertensive chronic kidney disease with stage 1 through stage 4 chronic kidney disease, or unspecified chronic kidney disease; N18.2 Chronic kidney disease, stage 2 (mild); I25.10 Atherosclerotic heart disease of native coronary artery without angina pectoris; E78.5 Hyperlipidemia, unspecified; R73.03 Prediabetes; G25.81 Restless legs syndrome; F33.41 Major depressive disorder, recurrent, in partial remission; F17.210 Nicotine dependence, cigarettes, uncomplicated; Z96.653 Presence of artificial knee joint, bilateral; Z90.711 Acquired absence of uterus with remaining cervical stump; Z79.82 Long term (current) use of aspirin; Z79.899 Other long term (current) drug therapy
CPT/HCPCS: 36415; 71046; 80053; 83880; 84484; 85025; 85610; 85730; 93005; 94640; 96372; 99284; A9270; J2919